=== PATIENT | female | born 1985 | race Caucasian/White ===

== ENCOUNTER → 2022-08-24 19:06 | Outpatient (CLI) | payer OTHER, SELFPAY ==
--- NOTE | 2022-08-24 19:10 | DI.MRI.S_ITS ---
PROCEDURE: MR LUMBAR SPINE WO CON INDICATIONS: Radiculopathy, lumbar region TECHNIQUE: Noncontrast sagittal T1 spin echo and T2 fast echo, sagittal STIR, and T2 fast spin echo through the lumbar spine. In cases with scoliosis, additional coronal T2 fast spin echo may be performed. COMPARISON: [facility] Outside Film, CR, XR LUMBAR SPINE 2 OR 3 VIEWS, 04/20/2022, 16:13. FINDINGS: Image quality: Excellent. Alignment and Curvature: There is normal bony alignment. Bone Marrow: L4-5 interbody fusion with posterior almaz and screw instrumentation in good position. Right-sided foraminotomy noted. Spinal Cord: Conus medullaris terminates at the L1 level. Visualized cord demonstrates normal signal and size. Paraspinous Soft Tissues: No paravertebral masses. T12-L1: Normal appearance. L1-L2: Normal appearance. L2-L3: Normal appearance. L3-L4: Normal appearance. L4-L5: Discectomy and fusion. Right sided foraminotomy. No central or foraminal stenosis. L5-S1: Discectomy and fusion with good graft incorporation and anterior instrumentation. No central stenosis. No foraminal stenosis IMPRESSION: L4-5 and L5-S1 instrumented discectomy and fusion. No central or foraminal stenosis throughout the exam Approved by: Gurpreet Dasilva M.D. on 08/25/2022 at 14:05
== END ==
PROVIDERS: Referring Provider Physical Medicine & Rehabilitation Pain Medicine; Visit Provider Physical Medicine & Rehabilitation Pain Medicine
DX: M54.16 Radiculopathy, lumbar region (principal); Z98.1 Arthrodesis status
CPT/HCPCS: 72148

== ENCOUNTER → 2022-09-27 13:35 | Outpatient (CLI) | payer OTHER, SELFPAY ==
--- NOTE | 2022-09-27 | DI.MG.S_ITS ---
BILATERAL DIGITAL DIAGNOSTIC MAMMOGRAM 3D/2D: 09/27/2022 CLINICAL: Baseline Bilateral lumps. No prior exams were available for comparison. Both breasts are extremely dense, which lowers the sensitivity of mammography (category d />75% glandular tissue). No significant masses, calcifications, or other findings are seen in either breast. IMPRESSION: INCOMPLETE: NEEDS ADDITIONAL IMAGING EVALUATION There is no abnormality seen in the right breast to correspond with the palpable abnormality, however, ultrasound is recommended. There are no abnormalities seen in the left breast to correspond with the multiple palpable nodularities, however, ultrasound is recommended. Based on the Tyrer Cuzick model (a risk assessment model) the patient's lifetime risk is 15.0% and her 10 year risk is 1.1%. According to the ACR, ACS, and NCCN guidelines, an annual breast MRI exam along with mammogram is recommended if the patient's lifetime risk is 20% or greater. This exam was interpreted at Station ID: [id number]. NOTE: For mammograms, a report in lay terms will be sent to the patient. Approximately 15% of breast malignancies will not be visualized mammographically. In the management of a palpable breast mass, a negative mammogram must not discourage biopsy of a clinically suspicious lesion. Electronically Signed By: Tobias Arzola M.D. lc/:09/27/2022 15:37:40 ACR BI-RADS Category 0: Incomplete 3340F
--- NOTE | 2022-09-27 13:38 | DI.US.S_ITS ---
ULTRASOUND OF RIGHT BREAST: 09/27/2022 CLINICAL: Evaluation of palpable region right breast. Comparison is made to exam dated: 09/27/2022 mammogram - [facility]. Real-time ultrasound of the right breast was performed. Oseguera scale images of the real-time examination were reviewed. No significant abnormalities were seen sonographically in the right breast. IMPRESSION: NEGATIVE There is no sonographic evidence of malignancy. Clinical correlation and clinical followup are recommended. Patient has intermediate lifetime risk (15%) and dense breast tissue. Please correlate with personal risk factors and consider followup annual screening mammogram, even though the patient is not yet 42 years of age. In addition, patient is encouraged to return for reimaging if there are any new or concerning symptoms. In addition, patient reported bilateral compressible milky discharge. Consider clinical followup and further workup for this finding as well. This exam was interpreted at Station ID: [id number]. Electronically Signed By: Tobias Arzola M.D. lc/:09/27/2022 15:49:29 letter sent: Clinical Evaluation Ultrasound BI-RADS: 1 Negative
--- NOTE | 2022-09-27 13:38 | DI.US.S_ITS ---
ULTRASOUND OF LEFT BREAST: 09/27/2022 CLINICAL: Evaluation of palpable lumps left breast. Comparison is made to exam dated: 09/27/2022 mammogram - [facility]. Real-time ultrasound of the left breast was performed. Oseguera scale images of the real-time examination were reviewed. No significant abnormalities were seen sonographically in the left breast. IMPRESSION: NEGATIVE There is no sonographic evidence of malignancy. There are no abnormalities seen in the left breast to correspond with the palpable nodularities at 2, 4, and 7 o'clock, however, clinical correlation and clinical followup are recommended. Patient has intermediate lifetime risk (15%) and dense breast tissue. Please correlate with personal risk factors and consider followup annual screening mammogram, even though the patient is not yet 42 years of age. In addition, patient is encouraged to return for reimaging if there are any new or concerning symptoms. In addition, patient reported bilateral compressible milky discharge. Consider clinical followup and further workup for this finding as well. This exam was interpreted at station ID: [id number]. Electronically Signed By: Tobias Arzola M.D. lc/:09/27/2022 15:49:08 letter sent: Clinical Evaluation Ultrasound BI-RADS: 1 Negative
== END ==
PROVIDERS: Referring Provider Nurse Practitioner Obstetrics & Gynecology; Visit Provider Nurse Practitioner Obstetrics & Gynecology
DX: N63.10 Unspecified lump in the right breast, unspecified quadrant (principal); N63.20 Unspecified lump in the left breast, unspecified quadrant; R92.2 Inconclusive mammogram
CPT/HCPCS: 76642; 77066; G0279

== ENCOUNTER 2023-05-01 13:29 | Emergency (ER) | payer OTHER, SELFPAY ==
[2023-05-01 13:45] VITALS: BP 137/86; PULSE 106; RESP 16; TEMP 36.3; O2SAT 100; BMI 34.7
[2023-05-01 14:40] LABS: COVID-19 CEPHEID 4-PLEX PCR Negative (Negative); Influenza A - CEPHEID Flu A NEGATIVE (NEGATIVE); Influenza B - CEPHEID Flu B NEGATIVE (NEGATIVE); Respiratory Syncytial Virus Negative (Negative)
--- NOTE | 2023-05-01 16:04 | ED_ITS ---
HPI - Weakness <MASTER Espinoza - Last Filed: 05/01/23 17:31> General Chief complaint: Weakness Stated complaint: body swelling, weakness/pain Time Seen by Provider: 05/01/23 14:38 Source: patient Mode of arrival: Ambulatory History of Present Illness HPI Narrative: 38-year-old female, with history of frequent back surgeries and trigger point injections, presents to the emergency department with all body swelling since this a.m.. Patient states that she was exhibiting no symptoms before going to bed last night, denies eating any new foods or taking your medications before this morning. Patient has been on a new weight loss medication, Qsymia, for the last 5 days but has not experienced any bloating or swelling until this morning. Patient endorses that she had pitting edema in lower extremities, hand severely swollen and face was droopy because of the swelling. Patient stated that she had a hard time forming the sound ?F? because of all of the swelling. Patient took her morphine 100 mg around 8:00 a.m. this morning and then took her breakthrough pain medication after presenting to the emergency department. Patient states that she is still in enormous amount of pain. Last trigger point injection was a week ago and last doctor's appointment was 2 weeks ago. Patient's father is at the bedside. Related Data Allergies Allergy/AdvReac Type Severity Reaction Status Date / Time meperidine [From Demerol] Allergy Hypertensio Verified 05/01/23 13:44 n piperacillin [From Zosyn] Allergy Hypotension Verified 05/01/23 13:44 tazobactam [From Zosyn] Allergy Hypotension Verified 05/01/23 13:44 codeine AdvReac Hives Verified 05/01/23 13:44 metoclopramide [From Reglan] AdvReac Anxiety Verified 05/01/23 13:44 ondansetron [From Zofran] AdvReac Hives Verified 05/01/23 13:44 Sulfa (Sulfonamide AdvReac Hives Verified 05/01/23 13:44 Antibiotics) Review of Systems <MASTER Espinoza - Last Filed: 05/01/23 17:31> Review of Systems Narrative: Narrative: See HPI. GENERAL: Denies chills, fatigue, fever, sweats. Generalized pain throughout. HEENT: Denies sinus pain, ear pain, sore throat, difficulty swallowing, dizziness. RESPIRATORY: Denies dyspnea, cough, wheezing, sputum. CARDIOVASCULAR: Denies chest pain, palpitations, edema. GASTROINTESTINAL: Denies vomiting, abdominal pain, diarrhea, constipation. Endorses nausea secondary to pain. : Denies dysuria, frequency, incontinence, hematuria, urinary retention, flank pain. MSK: Denies weakness, joint pain, or bony pain. SKIN: Denies rash, skin lesions, or pruritis. Endorses edema and swelling throughout her body. NEUROLOGIC: Denies weakness, dizziness, headache, numbness, confusion. PSYCHIATRIC: No concerning psychosocial issues. Patient History <MASTER Espinoza - Last Filed: 05/01/23 17:31> Social History Smoking Status: Current every day smoker Smoking Status: Current every day smoker tobacco type: cigarettes alcohol intake frequency: holidays/special occasions only Substance Use Type: does not use Exam <MASTER Espinoza - Last Filed: 05/01/23 17:31> Narrative Exam Narrative: Exam Narrative: GENERAL: This is a well-nourished, well-developed patient, in no acute distress. HEAD: Atraumatic. Normocephalic. EYES: Pupils equal round and reactive. No scleral icterus, injection or drainage. ENT: Nose without bleeding, purulent drainage. Airway patent. CARDIOVASCULAR: Regular rate and rhythm without murmurs, peripheral pulses intact, cap refill <2 sec. RESPIRATORY: Breath sounds equal and clear bilaterally. No wheezes, rales, or rhonchi. No cough. No increased respiratory effort. No accessory muscle use. GASTROINTESTINAL: Abdomen soft, mild left lower quadrant tenderness, nondistended without guarding or rebound. No suprapubic pain. Last bowel movement was yesterday. MSK: Moves all extremities. Normal range of motion, no clubbing. Mild generalized edema. Neurovascularly intact. NEURO: A&O x 3. No facial drooping or other neuro deficits. SKIN: Warm, dry, no rashes or lesions noted. Initial Vital Signs Initial Vital Signs: Vital Signs Temperature 97.4 F L 05/01/23 13:45 Pulse Rate 106 H 05/01/23 13:45 Respiratory Rate 16 05/01/23 13:45 Blood Pressure 137/86 05/01/23 13:45 Pulse Oximetry 100 05/01/23 13:45 Oxygen Delivery Method Room Air 05/01/23 13:45 Reviewed <Humphrey Higgins MD - Last Filed: 05/02/23 18:30> Initial Vital Signs Initial Vital Signs: Vital Signs Temperature 97.4 F L 05/01/23 13:45 Pulse Rate 106 H 05/01/23 13:45 Respiratory Rate 16 05/01/23 13:45 Blood Pressure 137/86 05/01/23 13:45 Pulse Oximetry 100 05/01/23 13:45 Oxygen Delivery Method Room Air 05/01/23 13:45 Course <MASTER Espinoza - Last Filed: 05/01/23 17:31> Orders Ordered: ED Orders 05/01/23 13:51 Covid-19 + FLU A/B + RSV - PCR Stat 05/01/23 15:56 CBC Auto Diff [Complete Blood Count AUTO DIFF] Stat CMP [Comprehensive Metabolic Panel] Stat Vital Signs Vital signs: Vital Signs - 8 hr 05/01/23 13:45 05/01/23 16:22 Temperature 97.4 F L 97.6 F Pulse Rate 106 H 88 Respiratory Rate 16 20 Blood Pressure 137/86 108/64 Pulse Oximetry 100 96 Oxygen Delivery Method Room Air Room Air <Humphrey Higgins MD - Last Filed: 05/02/23 18:30> Orders Ordered: ED Orders 05/01/23 13:51 Covid-19 + FLU A/B + RSV - PCR Stat 05/01/23 15:56 CBC Auto Diff [Complete Blood Count AUTO DIFF] Stat CMP [Comprehensive Metabolic Panel] Stat Vital Signs Vital signs: Vital Signs - 8 hr 05/01/23 13:45 05/01/23 16:22 Temperature 97.4 F L 97.6 F Pulse Rate 106 H 88 Respiratory Rate 16 20 Blood Pressure 137/86 108/64 Pulse Oximetry 100 96 Oxygen Delivery Method Room Air Room Air MDM - Weakness <MASTER Espinoza - Last Filed: 05/01/23 17:31> Differential Diagnosis Differential diagnosis: Likely other (Edema, adverse reaction to medication) Lab Data 05/01/23 16:17 05/01/23 16:17 Labs: Lab Results 05/01/23 05/01/23 Range/Units 13:51 16:17 WBC 9.1 (4.5-11.0) X10^3/uL RBC 4.16 (4.0-5.2) X10^6/uL Hgb 12.4 (12.0-16.0) g/dL Hct 36.2 (36-46) % MCV 87.1 (80-100) fL MCH 29.7 (26-34) PG MCHC 34.2 (30-36) % RDW 13.6 (11.6-14.8) % Plt Count 294 (150-400) X10^3/uL Neut % (Auto) 61.5 (50-75) % Lymph % (Auto) 31.0 (25-40) % Ballard % (Auto) 4.7 (3-14) % Eos % (Auto) 2.2 (2-4) % Baso % (Auto) 0.6 (0-2) % Neut # (Auto) 5600 (8553-6826) /uL Lymph # (Auto) 2800 (7211-9751) /uL Ballard # (Auto) 400 (0-900) /uL Eos # (Auto) 200 (0-450) /uL Baso # (Auto) 100 (0-100) /uL Sodium 137 (137-145) mmol/L Potassium 3.7 (3.4-5.1) mmol/L Chloride 104 (98-107) mmol/L Carbon Dioxide 28 (22-32) mmol/L BUN 11 (7-17) mg/dL Creatinine 0.54 (0.52-1.04) mg/dL Estimated GFR > 60 (>60) mL/min BUN/Creatinine Ratio 20.4 (6-22) Glucose 107 H (70-100) mg/dL Calcium 8.9 (8.4-10.2) mg/dL Total Bilirubin 0.2 (0.2-1.3) mg/dL AST 67 H (14-36) IU/L ALT 45 H (<35) IU/L Alkaline Phosphatase 86 (38-126) U/L Total Protein 6.6 (6.3-8.2) g/dL Albumin 3.7 (3.5-5.0) g/dL Globulin 2.9 (1.7-4.1) g/dL Albumin/Globulin Ratio 1.3 (1.0-2.8) SARS-CoV-2 (PCR) Negative (Negative) Influenza A (RT-PCR) Flu a negative (NEGATIVE) Influenza B (RT-PCR) Flu b negative (NEGATIVE) RSV (PCR) Negative (Negative) MDM Narrative Medical decision making narrative: 38-year-old female with all body edema since this a.m.. Assessment was inconclusive and I am not sure what is causing patient's swelling. I suspect this may be a adverse reaction to the medication Qsymia that has phentermine and topiramate in it. Baseline labs obtained were all within normal limits. Patient is still uncomfortable but has plenty of at home medication. Discussed case with Dr. Higgins. When going into explained discharge instructions, patient was sleeping soundly. <Humphrey Higgins MD - Last Filed: 05/02/23 18:30> Lab Data Labs: Lab Results 05/01/23 05/01/23 Range/Units 13:51 16:17 WBC 9.1 (4.5-11.0) X10^3/uL RBC 4.16 (4.0-5.2) X10^6/uL Hgb 12.4 (12.0-16.0) g/dL Hct 36.2 (36-46) % MCV 87.1 (80-100) fL MCH 29.7 (26-34) PG MCHC 34.2 (30-36) % RDW 13.6 (11.6-14.8) % Plt Count 294 (150-400) X10^3/uL Neut % (Auto) 61.5 (50-75) % Lymph % (Auto) 31.0 (25-40) % Ballard % (Auto) 4.7 (3-14) % Eos % (Auto) 2.2 (2-4) % Baso % (Auto) 0.6 (0-2) % Neut # (Auto) 5600 (0543-5668) /uL Lymph # (Auto) 2800 (6923-3857) /uL Ballard # (Auto) 400 (0-900) /uL Eos # (Auto) 200 (0-450) /uL Baso # (Auto) 100 (0-100) /uL Sodium 137 (137-145) mmol/L Potassium 3.7 (3.4-5.1) mmol/L Chloride 104 (98-107) mmol/L Carbon Dioxide 28 (22-32) mmol/L BUN 11 (7-17) mg/dL Creatinine 0.54 (0.52-1.04) mg/dL Estimated GFR > 60 (>60) mL/min BUN/Creatinine Ratio 20.4 (6-22) Glucose 107 H (70-100) mg/dL Calcium 8.9 (8.4-10.2) mg/dL Total Bilirubin 0.2 (0.2-1.3) mg/dL AST 67 H (14-36) IU/L ALT 45 H (<35) IU/L Alkaline Phosphatase 86 (38-126) U/L Total Protein 6.6 (6.3-8.2) g/dL Albumin 3.7 (3.5-5.0) g/dL Globulin 2.9 (1.7-4.1) g/dL Albumin/Globulin Ratio 1.3 (1.0-2.8) SARS-CoV-2 (PCR) Negative (Negative) Influenza A (RT-PCR) Flu a negative (NEGATIVE) Influenza B (RT-PCR) Flu b negative (NEGATIVE) RSV (PCR) Negative (Negative) MDM Narrative Medical decision making narrative: 38-year-old female with all body edema since this a.m.. Assessment was inconclusive and I am not sure what is causing patient's swelling. I suspect this may be a adverse reaction to the medication Qsymia that has phentermine and topiramate in it. Baseline labs obtained were all within normal limits. Patient is still uncomfortable but has plenty of at home medication. Discussed case with Dr. Higgins. When going into explained discharge instructions, patient was sleeping soundly. I was immediately available in the department for consultation. Documentation has been reviewed. I agree with assessment and plan. Discharge Plan Departure Patient Disposition: Home Clinical Impression: Edema Qualifiers: Edema type: generalized Qualified Code(s): R60.1 - Generalized edema Instructions: DI for Dependent Edema, DI for Peripheral Edema -- Bilateral Activity Restrictions/Additional Instructions: *You have been diagnosed with edema. I am sorry that you are having to deal with this, but I do suspect this may have been an adverse reaction to your medication. Your labs were all within normal limits and there is nothing dangerous noted at this time. I believe this will resolve over time. You may elevate swollen areas above your heart as much as possible over the next 48 hours to allow the edema to go down. You may also want to follow up with the doctor that prescribed this medication in case adjustments need to be made. Please use your at-home pain medications as needed. For any worsening symptoms such as difficulty breathing, chest pain, etc. please return to the emergency department. *What to do: *Please continue to take your regular medications as directed. [ ] New medication prescriptions sent to your pharmacy: [ ] [ ] New medication written as a paper prescription [x ] No new medications given *Please follow up with your primary care provider in 2-3 days, call for an appointment. Let them know you were seen in the Emergency Department and that we ask that you be seen in follow up. We will electronically transmit a record of today's note if your PCP is in our system *If you do not have a primary care provider please contact the [facility] Resource line at [phone]. They will ask some questions about your medical history and help get you set up with a doctor in the community. ? Return to ER if you should have any new, worsening or concerning symptoms, such as worsening pain, severe headache, confusion, chest pain, difficulty breathing, fever greater than 101 F, shaking chills, persistent vomiting to the point that you cannot drink fluids, or other new or worsening symptoms. Stand Alone Forms: Patient Portal/API
[2023-05-01 16:22] VITALS: BP 108/64; PULSE 88; RESP 20; TEMP 36.4; O2SAT 96
[2023-05-01 16:26] LABS: Add Manual Diff / Slide Review NO; Basophils Absolute Auto 100 /uL (0-100); Basophils Percent Auto 0.6 % (0-2); Eosinophils Absolute Auto 200 /uL (0-450); Eosinophils Percent Auto 2.2 % (2-4); Hematocrit 36.2 % (36-46); Hemoglobin 12.4 g/dL (12.0-16.0); Lymphocytes Absolute Auto 2800 /uL (1100-4500); Mean Corpuscular HGB Conc 34.2 % (30-36); Mean Corpuscular Hemoglobin 29.7 PG (26-34); Mean Corpuscular Volume 87.1 fL (80-100); Monocytes Absolute Auto 400 /uL (0-900); Monocytes Percent Auto 4.7 % (3-14); Neutrophils Absolute Auto 5600 /uL (1500-7000); Neutrophils Percent Auto 61.5 % (50-75); Platelet Count 294 X10^3/uL (150-400); Red Blood Cell Count 4.16 X10^6/uL (4.0-5.2); Red Cell Distribution Width 13.6 % (11.6-14.8); White Blood Cell Count 9.1 X10^3/uL (4.5-11.0)
[2023-05-01 16:55] LABS: Alanine Aminotransferase 45 IU/L (<35); Albumin 3.7 g/dL (3.5-5.0); Albumin Globulin Ratio 1.3 (1.0-2.8); Alkaline Phosphatase 86 U/L (38-126); Aspartate Aminotransferase 67 IU/L (14-36); BUN Creatinine Ratio 20.4 (6-22); Bilirubin Total 0.2 mg/dL (0.2-1.3); Blood Urea Nitrogen 11 mg/dL (7-17); Calcium 8.9 mg/dL (8.4-10.2); Carbon Dioxide 28 mmol/L (22-32); Chloride 104 mmol/L (98-107); Estimated Glomerular Filt Rate > 60 mL/min (>60); Globulin 2.9 g/dL (1.7-4.1); Glucose 107 mg/dL (70-100); HEMOLYSIS < 15 (0-50); Potassium 3.7 mmol/L (3.4-5.1); Sodium 137 mmol/L (137-145); Total Protein 6.6 g/dL (6.3-8.2)
[2023-05-01 17:45] VITALS: BP 104/55; PULSE 75; RESP 12; O2SAT 96
== END 2023-05-01 17:49 | disposition home or self-care (01) ==
PROVIDERS: Emergency Medicine; Emergency Provider Registered Nurse
DX: R60.1 Generalized edema (principal)
CPT/HCPCS: 0241U; 80053; 85025; 99281; 99283

== ENCOUNTER → 2023-07-19 12:58 | Outpatient (CLI) | payer OTHER, SELFPAY ==
--- NOTE | 2023-07-19 13:04 | DI.CT.S_ITS ---
PROCEDURE: CT LUMBAR SPINE WO CON INDICATIONS: radiculopathy lumbar region TECHNIQUE: Noncontrast 3 mm thick sections acquired from the T12 level to the sacrum. Sagittal and coronal reformats were constructed. For radiation dose reduction, the following was used: automated exposure control. COMPARISON: [facility], MR, MR LUMBAR SPINE WO CON, 08/24/2022, 19:27. [facility] Outside Film, CT, CT LUMBAR SPINE WITHOUT CONTRAST, 01/22/2021, 22:30. FINDINGS: Image quality: Prominent artifact from fusion hardware is present. Bones: There is anterior fusion at L5. Posterior fusion is present at L4-5. Intervertebral spacer/prosthetic discs are present at L4-5 and L5-S1. There is no gross spinal stenosis. Mild right foraminal narrowing at L4-5, minimally progressive. Soft tissues: No retroperitoneal masses or hematomas. Visualized aorta is normal in caliber. IMPRESSION: Relatively stable exam demonstrating stent to postsurgical changes. Mild right foraminal narrowing at L4-5. Dictated by: Isamar Garcia M.D. on 07/19/2023 at 19:37 Approved by: Isamar Garcia M.D. on 07/19/2023 at 19:49
== END ==
PROVIDERS: Referring Provider Physical Medicine & Rehabilitation; Visit Provider Physical Medicine & Rehabilitation
DX: M54.16 Radiculopathy, lumbar region (principal); M48.061 Spinal stenosis, lumbar region without neurogenic claudication; Z98.1 Arthrodesis status
CPT/HCPCS: 72131

== ENCOUNTER 2023-08-15 19:33 | Emergency (ER) | payer OTHER, SELFPAY ==
[2023-08-15 19:51] VITALS: BP 146/65; PULSE 112; RESP 20; TEMP 36.3; O2SAT 98; BMI 36.6
--- NOTE | 2023-08-15 21:01 | DI.US.S_ITS ---
PROCEDURE: US PERIPH VENOUS LOW EXTREM RT INDICATIONS: PAIN/EDEMA 9 DAYS POST TRAUMA TECHNIQUE: Real-time imaging, as well as color and pulse Doppler interrogation, were performed of the lower extremity deep veins from the inguinal ligament to the popliteal fossa, with documentation of the visualized calf veins. COMPARISON: None. FINDINGS: The common femoral, femoral, popliteal, and the visualized calf veins are normally compressible, and free of intraluminal thrombus. Color and pulse Doppler demonstrate normal phasic intraluminal flow. There is normal augmentation response to distal compression maneuver. IMPRESSION: No findings of lower extremity deep venous thrombosis. Dictated by: Jean Pierre Van M.D. on 08/15/2023 at 22:52 Approved by: Jean Pierre Van M.D. on 08/15/2023 at 22:53
--- NOTE | 2023-08-15 22:47 | ED.LOWEXIN ---
HPI - Extremity Injury (Lower) General Chief Complaint: Extremity Injury, Lower Stated Complaint: rt leg posible DVT Time Seen by Provider: 08/15/23 22:29 Source: patient Mode of arrival: Ambulatory History of Present Illness HPI Narrative: 38-year-old female presents for evaluation of right lower extremity pain and swelling. Approximately 10 days ago she had a ground level trip and fall onto some concrete stairs. She had persistent pain and bruising and so yesterday she went to the walk-in clinic where x-rays of her lower extremity were obtained and reportedly normal. Patient states that she was told today to come back to the emergency department to rule out DVT due to the swelling and bruising. Patient reports son has history of Von Willebrand's disease and she was also undergoing testing for possible bleeding disorder. She states that she has been using compression, ice, elevation as well as her chronic pain medications without significant relief. She states that she takes 100 mg morphine extended release and 10-325 oxycodone tablets as her chronic pain regimen. Related Data Allergies Allergy/AdvReac Type Severity Reaction Status Date / Time meperidine [From Demerol] Allergy Hypertensio Verified 08/15/23 19:59 n piperacillin [From Zosyn] Allergy Hypotension Verified 08/15/23 19:59 tazobactam [From Zosyn] Allergy Hypotension Verified 08/15/23 19:59 codeine AdvReac Hives Verified 08/15/23 19:59 metoclopramide [From Reglan] AdvReac Anxiety Verified 08/15/23 19:59 ondansetron [From Zofran] AdvReac Hives Verified 08/15/23 19:59 Sulfa (Sulfonamide AdvReac Hives Verified 08/15/23 19:59 Antibiotics) Patient History Social History Smoking Status: Current every day smoker Smoking Status: Current every day smoker tobacco type: cigarettes alcohol intake frequency: holidays/special occasions only Substance Use Type: does not use Exam Initial Vital Signs Initial Vital Signs: Vital Signs Temperature 97.3 F L 08/15/23 19:51 Pulse Rate 112 H 08/15/23 19:51 Respiratory Rate 20 08/15/23 19:51 Blood Pressure 146/65 H 08/15/23 19:51 Pulse Oximetry 98 08/15/23 19:51 Oxygen Delivery Method Room Air 08/15/23 19:51 Const: Awake, alert, no acute distress, nontoxic appearing MSK: Bruising from knee to ankle, compartments soft, generalized tenderness to RLE without crepitus or deformity Skin: Warm, Dry, intact, bruising as noted above Neuro: AO x3, CN II-XII grossly intact, moves all extremities Course Orders Ordered: ED Orders 08/15/23 21:01 US periph venous low extrem rt Stat 08/15/23 23:10 CBC Auto Diff [Complete Blood Count AUTO DIFF] Stat CMP [Comprehensive Metabolic Panel] Stat PT [Prothrombin Time INR] Stat Discontinued Medications Acetaminophen (Ofirmev) 1,000 mg in 100 mls @ 400 mls/hr IV NOW ONE Stop: 08/15/23 23:23 Last Infusion: 08/16/23 00:25 Dose: Infused Documented By: Admin: 08/16/23 00:11 Dose: 400 mls/hr Documented By: Ketorolac Tromethamine (Ketorolac 30 Mg/Ml Vial) 15 mg IV NOW ONE Stop: 08/15/23 23:10 Last Admin: 08/16/23 00:11 Dose: 15 mg Documented By: Morphine Sulfate (Morphine 4 Mg/Ml Inj) 4 mg IV NOW ONE Stop: 08/15/23 23:10 Last Admin: 08/16/23 00:12 Dose: 4 mg Documented By: Vital Signs Vital signs: Vital Signs - 8 hr 08/16/23 00:25 08/16/23 00:30 08/16/23 01:00 Pulse Rate 89 95 H 97 H Blood Pressure Pulse Oximetry 98 98 94 08/16/23 01:30 08/16/23 02:00 08/16/23 02:22 Pulse Rate 98 H 103 H Blood Pressure 88/54 L Pulse Oximetry 95 96 MDM - Extremity Injury (Lower) Differential Diagnosis Differential diagnosis: Likely ankle sprain and strain, acute internal derangement of knee and fracture of femur Lab Data 08/16/23 00:14 08/16/23 00:14 Labs: Lab Results 08/16/23 Range/Units 00:14 WBC 12.7 H (4.5-11.0) X10^3/uL RBC 4.11 (4.0-5.2) X10^6/uL Hgb 12.0 (12.0-16.0) g/dL Hct 35.7 L (36-46) % MCV 86.8 (80-100) fL MCH 29.1 (26-34) PG MCHC 33.5 (30-36) % RDW 13.5 (11.6-14.8) % Plt Count 321 (150-400) X10^3/uL Neut % (Auto) 68.2 (50-75) % Lymph % (Auto) 22.8 L (25-40) % [place] % (Auto) 6.0 (3-14) % Eos % (Auto) 2.4 (2-4) % Baso % (Auto) 0.6 (0-2) % Neut # (Auto) 8700 H (0878-2455) /uL Lymph # (Auto) 2900 (7619-6269) /uL [place] # (Auto) 800 (0-900) /uL Eos # (Auto) 300 (0-450) /uL Baso # (Auto) 100 (0-100) /uL PT 11.0 (9.4-12.5) SECONDS INR 1.0 (0.9-1.3) Sodium 135 L (137-145) mmol/L Potassium 3.5 (3.4-5.1) mmol/L Chloride 104 (98-107) mmol/L Carbon Dioxide 27 (22-32) mmol/L BUN 13 (7-17) mg/dL Creatinine 0.58 (0.52-1.04) mg/dL Estimated GFR > 60 (>60) mL/min BUN/Creatinine Ratio 22.4 H (6-22) Glucose 99 (70-100) mg/dL Calcium 8.8 (8.4-10.2) mg/dL Total Bilirubin 0.4 (0.2-1.3) mg/dL AST 18 (14-36) IU/L ALT 16 (<35) IU/L Alkaline Phosphatase 76 (38-126) U/L Total Protein 7.1 (6.3-8.2) g/dL Albumin 4.3 (3.5-5.0) g/dL Globulin 2.8 (1.7-4.1) g/dL Albumin/Globulin Ratio 1.5 (1.0-2.8) Imaging Data US - DVT: Radiologist's Impression: PROCEDURE: US PERIPH VENOUS LOW EXTREM RT INDICATIONS: PAIN/EDEMA 9 DAYS POST TRAUMA TECHNIQUE: Real-time imaging, as well as color and pulse Doppler interrogation, were performed of the lower extremity deep veins from the inguinal ligament to the popliteal fossa, with documentation of the visualized calf veins. COMPARISON: None. FINDINGS: The common femoral, femoral, popliteal, and the visualized calf veins are normally compressible, and free of intraluminal thrombus. Color and pulse Doppler demonstrate normal phasic intraluminal flow. There is normal augmentation response to distal compression maneuver. IMPRESSION: No findings of lower extremity deep venous thrombosis. Dictated by: Jean Pierre Van M.D. on 08/15/2023 at 22:52 Approved by: Jean Pierre Van M.D. on 08/15/2023 at 22:53 [facility] Narrative Medical decision making narrative: Presenting for evaluation of possible DVT due to persistent pain and swelling after traumatic injury. Negative x-rays yesterday per patient report. Patient does have extensive bruising noted over her knee, tib-fib region, and ankle. Compartments are soft, palpable DP pulses, neurologically intact. Ultrasound negative for DVT. Blood work shows normal platelets, normal INR, no explanation for delayed bruising. Patient was counseled on lab and imaging findings, recommended orthopedic follow up to see if there are any ligamentous injuries. Patient was already on high doses of chronic pain medications and we will not prescribe any additional at this time. Discharge Plan Departure Patient Disposition: Home Clinical Impression: Contusion of lower extremity Instructions: DI for Contusion Activity Restrictions/Additional Instructions: Your ultrasound today did not show any signs of blood clot. Your platelets were normal today and your INR (clotting time) was also normal. I do not know why you are experiencing this bruising. Continue to take your normal pain medications and follow up with Orthopedic surgery. Referrals: Socrates Franklin MD [Primary Care Provider] - Dillon Casey MD [Physician] - Stand Alone Forms: Patient Portal/API
--- NOTE | 2023-08-15 23:19 | PC.NURSE ---
c/o pain in the RLE after tripping and falling over a toy was seen at outside facility yesterday and told to come here if pain continued, no obvious injury noted
[2023-08-16] MEDS: KETOROLAC 30 MG/ML VIAL 15 MG IV (00:11)
[2023-08-16] MEDS: ACETAMINOPHEN IV 1,000 MG/100 ML VIAL 400 MG IV (00:11)
[2023-08-16] MEDS: MORPHINE 4 MG/ML INJ IV (00:12)
[2023-08-16 00:23] LABS: Add Manual Diff / Slide Review NO; Basophils Absolute Auto 100 /uL (0-100); Basophils Percent Auto 0.6 % (0-2); Eosinophils Absolute Auto 300 /uL (0-450); Eosinophils Percent Auto 2.4 % (2-4); Hematocrit 35.7 % (36-46); Lymphocytes Absolute Auto 2900 /uL (1100-4500); Lymphocytes Percent Auto 22.8 % (25-40); Mean Corpuscular HGB Conc 33.5 % (30-36); Mean Corpuscular Hemoglobin 29.1 PG (26-34); Mean Corpuscular Volume 86.8 fL (80-100); Monocytes Absolute Auto 800 /uL (0-900); Neutrophils Absolute Auto 8700 /uL (1500-7000); Neutrophils Percent Auto 68.2 % (50-75); Platelet Count 321 X10^3/uL (150-400); Red Blood Cell Count 4.11 X10^6/uL (4.0-5.2); Red Cell Distribution Width 13.5 % (11.6-14.8); White Blood Cell Count 12.7 X10^3/uL (4.5-11.0)
[2023-08-16 00:25] VITALS: PULSE 89; O2SAT 98
[2023-08-16 00:30] VITALS: PULSE 95; O2SAT 98
[2023-08-16 00:33] LABS: Alanine Aminotransferase 16 IU/L (<35); Albumin 4.3 g/dL (3.5-5.0); Albumin Globulin Ratio 1.5 (1.0-2.8); Alkaline Phosphatase 76 U/L (38-126); Aspartate Aminotransferase 18 IU/L (14-36); BUN Creatinine Ratio 22.4 (6-22); Bilirubin Total 0.4 mg/dL (0.2-1.3); Blood Urea Nitrogen 13 mg/dL (7-17); Calcium 8.8 mg/dL (8.4-10.2); Carbon Dioxide 27 mmol/L (22-32); Chloride 104 mmol/L (98-107); Estimated Glomerular Filt Rate > 60 mL/min (>60); Globulin 2.8 g/dL (1.7-4.1); Glucose 99 mg/dL (70-100); HEMOLYSIS < 15 (0-50); Potassium 3.5 mmol/L (3.4-5.1); Sodium 135 mmol/L (137-145); Total Protein 7.1 g/dL (6.3-8.2)
[2023-08-16 01:00] VITALS: PULSE 97; O2SAT 94
[2023-08-16 01:30] VITALS: PULSE 98; O2SAT 95
--- NOTE | 2023-08-16 01:34 | PC.NURSE ---
0045 & 0134 Pt attempted to contact ride home. She will try again until she is able to find a ride home.
[2023-08-16 02:00] VITALS: PULSE 103; O2SAT 96
--- NOTE | 2023-08-16 02:09 | PC.NURSE ---
0200 Pt states that he mother is coming from the [facility]. It may take her at lease 1 hour. Message around 134 am
[2023-08-16 02:22] VITALS: BP 88/54
== END 2023-08-16 02:23 | disposition home or self-care (01) ==
PROVIDERS: Emergency Provider Emergency Medicine; PCP Internal Medicine
DX: S80.01XA Contusion of right knee, initial encounter (principal); S90.01XA Contusion of right ankle, initial encounter; S80.11XA Contusion of right lower leg, initial encounter; W18.30XA Fall on same level, unspecified, initial encounter
CPT/HCPCS: 36415; 80053; 85025; 85610; 93971; 96374; 96375; 99284; J0136; J1885; J2270

== ENCOUNTER 2023-09-10 13:08 | Emergency (ER) | payer OTHER, SELFPAY ==
[2023-09-10] VITALS (12 sets, daily range): BP systolic 114–137; BP diastolic 58–81; PULSE 89–105; RESP 11–20; TEMP 36.2; O2SAT 95–99; BMI 34.7
--- NOTE | 2023-09-10 13:11 | DI.RAD.S_ITS ---
PROCEDURE: XR CHEST 1V INDICATIONS: chest pain TECHNIQUE: One view of the chest was acquired. COMPARISON: None. FINDINGS: Surgical changes and devices: None. Lungs and pleura: Lungs are clear. No pleural effusions or pneumothorax. Mediastinum: Mediastinal contours appear normal. Heart size is normal. Bones and chest wall: No suspicious bony lesions. Overlying soft tissues appear unremarkable. IMPRESSION: No acute cardiopulmonary abnormality is seen. Dictated by: Sincere Waldrop M.D. on 09/10/2023 at 13:09 Approved by: Sincere Waldrop M.D. on 09/10/2023 at 13:09
--- NOTE | 2023-09-10 13:59 | ED.SYNCOPE ---
HPI - Syncope General Chief Complaint: Syncope Stated Complaint: Syncope Time Seen by Provider: 09/10/23 13:42 Source: patient and EMS Mode of arrival: EMS History of Present Illness HPI narrative: Patient is a 38-year-old female with chronic ongoing back pain history of lumbar fusion, current smoker diabetes presenting today with a syncopal episode. She reports that she was sitting down in [employer] when she got extremely hot and slumped over. She got sternal rubbed woke up to many people all around her. She does not remember much. There is questionable shaking. It sounds like it was a brief episode. She reports that she ate and drank normally she staying hydrated. She reports that she has had 2 different imaging she went to a nuclear bone scan [facility] and called her and told her that she has some sort of bilateral consolidations within the lower lobes right greater than left concerning for aspiration or infectious process such as pneumonia. She then went to walk-in clinic where she was diagnosed with the same. She was given a prescription for doxycycline but has yet to start. Reports that she has had cough for about 3 months. She does not feel like it has been anywhere she has not had any sort of fever. She does have a hoarse voice. Related Data Home Medications Medication Instructions Recorded Confirmed buspirone 30 mg tablet 30 mg PO BID 09/10/23 09/10/23 cyclobenzaprine 10 mg tablet 10 mg PO BID 09/10/23 09/10/23 diazepam 2 mg tablet 2 mg PO BID PRN Anxiety 09/10/23 09/10/23 gabapentin 800 mg tablet 800 mg PO 3XD 09/10/23 09/10/23 meloxicam 15 mg tablet 15 mg PO DAILY 09/10/23 09/10/23 metformin 500 mg tablet 1,000 mg PO BID 09/10/23 09/10/23 morphine 100 mg tablet,extended 100 mg PO DAILY 09/10/23 09/10/23 release oxycodone-acetaminophen 10 mg-325 1 tab PO Q6H PRN pain 09/10/23 09/10/23 mg tablet phentermine 7.5 mg-topiramate ER 1 cap PO DAILY 09/10/23 09/10/23 46 mg capsule,ext.release 24hr mphase (Qsymia) vilazodone 40 mg tablet 50 mg PO DAILY 09/10/23 09/10/23 Allergies Allergy/AdvReac Type Severity Reaction Status Date / Time meperidine [From Demerol] Allergy Hypertensio Verified 09/10/23 13:16 n piperacillin [From Zosyn] Allergy Hypotension Verified 09/10/23 13:16 tazobactam [From Zosyn] Allergy Hypotension Verified 09/10/23 13:16 codeine AdvReac Hives Verified 09/10/23 13:16 metoclopramide [From Reglan] AdvReac Anxiety Verified 09/10/23 13:16 ondansetron [From Zofran] AdvReac Hives Verified 09/10/23 13:16 Sulfa (Sulfonamide AdvReac Hives Verified 09/10/23 13:16 Antibiotics) Patient History Social History Smoking Status: Current every day smoker Smoking Status: Current every day smoker tobacco type: cigarettes alcohol intake frequency: holidays/special occasions only Substance Use Type: does not use Exam Initial Vital Signs Initial Vital Signs: Vital Signs Pulse Rate 94 H 09/10/23 13:13 Blood Pressure 137/81 09/10/23 13:13 Pulse Oximetry 97 09/10/23 13:13 GENERAL: Alert pleasant 38-year-old female and in no acute distress. HEENT: Head atraumatic,EOMI, pupils reactive, face symmetric, moist mucous membranes CARDIOVASCULAR: Regular rate and rhythm without murmurs, rubs or gallops. RESPIRATORY: Breath sounds equal bilaterally, no wheezes rales or rhonchi. ABDOMEN: Soft, nontender. Normoactive bowel sounds all 4 quadrants. No guarding or rebound. EXTREMITIES: Normal range of motion, no clubbing or edema. Neurovascularly intact NEUROLOGICAL: Alert and oriented x4.Normal gait and speech. Cranial nerves II through XII grossly intact. SKIN: Warm, dry, no laceration, no petechiae, no rashes or lesions. Scores GCS Bao coma scale eye opening: Spontaneous Bao coma scale verbal response: Orientated [place] coma scale motor response: Obey commands [place] coma scale total score: 15 Course Orders Ordered: ED Orders 09/10/23 13:11 XR chest 1V Stat EKG-12 Lead Stat 09/10/23 13:50 Urine Microscopic Stat 09/10/23 13:51 D Dimer Stat 09/10/23 13:57 Complete Blood Count AUTO DIFF Stat Comprehensive Metabolic Panel Stat Lactate (Lactic Acid) Stat Lipase Stat Magnesium Stat PTT Partial Thromboplastin Kash Stat Prothrombin Time INR Stat Troponin & CK Cardiac Panel Stat 09/10/23 14:24 Respiratory Panel (Film Array) Stat Discontinued Medications Albuterol/Ipratropium (Albuterol/Ipratropium 3 Ml Ampul) 3 ml INH NOW ONE Stop: 09/10/23 14:16 Last Admin: 09/10/23 14:20 Dose: 3 ml Documented By: CUATE Aspirin (Aspirin 81 Mg Chew Tab) 324 mg PO NOW ONE Stop: 09/10/23 13:12 Last Admin: 09/10/23 13:22 Dose: Not Given Documented By: CUATE Hydromorphone HCl (Hydromorphone 0.5 Mg Inj) 0.5 mg IV NOW ONE Stop: 09/10/23 14:17 Last Admin: 09/10/23 14:25 Dose: 0.5 mg Documented By: CUATE Sodium Chloride (Normal Saline 0.9%) 1,000 mls @ 1,000 mls/hr IV BOLUS ONE Stop: 09/10/23 15:11 Last Infusion: 09/10/23 15:29 Dose: Infused Documented By: Admin: 09/10/23 14:20 Dose: 1,000 mls/hr Documented By: CUATE Ketorolac Tromethamine (Ketorolac 30 Mg/Ml Vial) 15 mg IV NOW ONE Stop: 09/10/23 14:15 Last Admin: 09/10/23 14:19 Dose: 15 mg Documented By: CUATE Oxycodone/Acetaminophen (Oxycodone/Acetaminophen 5/325 Tablet) 2 tab PO NOW ONE Stop: 09/10/23 15:57 Last Admin: 09/10/23 16:06 Dose: 2 tab Documented By: CUATE Vital Signs Vital signs: Vital Signs - 8 hr 09/10/23 13:13 09/10/23 13:13 09/10/23 13:16 Temperature 97.2 F L Pulse Rate 94 H 100 H Respiratory Rate 20 Blood Pressure 137/81 137/81 Pulse Oximetry 97 96 Oxygen Delivery Method Room Air 09/10/23 13:35 09/10/23 14:00 09/10/23 14:04 Temperature Pulse Rate 96 H 95 H 93 H Respiratory Rate 12 15 18 Blood Pressure Pulse Oximetry Oxygen Delivery Method 09/10/23 14:04 09/10/23 14:15 09/10/23 14:15 Temperature Pulse Rate 96 H Respiratory Rate 17 Blood Pressure 115/60 115/68 Pulse Oximetry Oxygen Delivery Method 09/10/23 14:30 09/10/23 14:30 09/10/23 14:45 Temperature Pulse Rate 100 H Respiratory Rate 13 Blood Pressure 114/61 131/58 L Pulse Oximetry 96 Oxygen Delivery Method 09/10/23 14:45 09/10/23 15:00 09/10/23 15:00 Temperature Pulse Rate 104 H 105 H Respiratory Rate 11 L 16 Blood Pressure 124/63 Pulse Oximetry 95 97 Oxygen Delivery Method 09/10/23 15:15 09/10/23 15:15 09/10/23 15:32 Temperature Pulse Rate 98 H 91 H Respiratory Rate 14 Blood Pressure 124/66 Pulse Oximetry 95 96 Oxygen Delivery Method 09/10/23 16:16 Temperature Pulse Rate 89 Respiratory Rate 14 Blood Pressure 116/73 Pulse Oximetry 99 Oxygen Delivery Method Room Air MDM - Syncope Lab Data 09/10/23 13:57 09/10/23 13:57 Labs: Lab Results 09/10/23 09/10/23 09/10/23 Range/Units 13:50 13:51 13:57 WBC 9.9 (4.5-11.0) X10^3/uL RBC 4.23 (4.0-5.2) X10^6/uL Hgb 12.2 (12.0-16.0) g/dL Hct 36.4 (36-46) % MCV 85.9 (80-100) fL MCH 28.8 (26-34) PG MCHC 33.5 (30-36) % RDW 12.8 (11.6-14.8) % Plt Count 385 (150-400) X10^3/uL Neut % (Auto) 60.9 (50-75) % Lymph % (Auto) 28.2 (25-40) % [place] % (Auto) 7.5 (3-14) % Eos % (Auto) 2.7 (2-4) % Baso % (Auto) 0.7 (0-2) % Neut # (Auto) 6000 (0967-9807) /uL Lymph # (Auto) 2800 (6844-1776) /uL [place] # (Auto) 700 (0-900) /uL Eos # (Auto) 300 (0-450) /uL Baso # (Auto) 100 (0-100) /uL PT 10.4 (9.4-12.5) SECONDS INR 0.9 (0.9-1.3) APTT 37 H (25.1-36.5) SECONDS D-Dimer 337 (<500) ng/ml Sodium 138 (137-145) mmol/L Potassium 4.4 (3.4-5.1) mmol/L Chloride 106 (98-107) mmol/L Carbon Dioxide 26 (22-32) mmol/L BUN 18 H (7-17) mg/dL Creatinine 0.52 (0.52-1.04) mg/dL Estimated GFR > 60 (>60) mL/min BUN/Creatinine Ratio 34.6 H (6-22) Glucose 91 (70-100) mg/dL Lactate 2.1 (0.7-2.1) mmol/L Calcium 9.2 (8.4-10.2) mg/dL Magnesium 1.7 (1.6-2.3) mg/dL Total Bilirubin 0.3 (0.2-1.3) mg/dL AST 23 (14-36) IU/L ALT 20 (<35) IU/L Alkaline Phosphatase 72 (38-126) U/L Total Creatine Kinase 58 (30-135) U/L Troponin I < 0.012 (0.01-0.034) ng/mL Total Protein 7.0 (6.3-8.2) g/dL Albumin 4.2 (3.5-5.0) g/dL Globulin 2.8 (1.7-4.1) g/dL Albumin/Globulin Ratio 1.5 (1.0-2.8) Lipase 101 (23-300) U/L Urine RBC None seen (0-5/HPF) Urine WBC None seen (0-5/HPF) Ur Squamous Epith Cells 1-5 /hpf (0-5/HPF) Urine Bacteria Occasional (0-1) (None) Ur Culture Indicated? Cult not indicated Vol Urine Centrifuged 10ml (spun) Chlamy pneumoniae PCR (Not Detect) Adenovirus (PCR) (Not Detect) B.parapertussis DNA PCR (Not Detecte) Coronavirus OC43 (PCR) (Not Detect) Coronavirus HKU1 (PCR) (Not Detect) Coronavirus 229E (PCR) (Not Detect) SARS-CoV-2 (PCR) (Not Detecte) Coronavirus NL63 (PCR) (Not Detect) Human Metapneumovir PCR (Not Detect) Influenza Type A (PCR) (Not Detect) Influenza Type B (PCR) (Not Detect) M. pneumoniae (PCR) (Not Detect) Parainfluenza 1 (PCR) (Not Detect) Parainfluenza 2 (PCR) (Not Detect) Parainfluenza 3 (PCR) (Not Detect) Parainfluenza 4 (PCR) (Not Detect) RSV (PCR) (Not Detect) Entero/Rhino (PCR) (Not Detect) 09/10/23 Range/Units 14:24 WBC (4.5-11.0) X10^3/uL RBC (4.0-5.2) X10^6/uL Hgb (12.0-16.0) g/dL Hct (36-46) % MCV (80-100) fL MCH (26-34) PG MCHC (30-36) % RDW (11.6-14.8) % Plt Count (150-400) X10^3/uL Neut % (Auto) (50-75) % Lymph % (Auto) (25-40) % [place] % (Auto) (3-14) % Eos % (Auto) (2-4) % Baso % (Auto) (0-2) % Neut # (Auto) (7569-8703) /uL Lymph # (Auto) (5231-5780) /uL [place] # (Auto) (0-900) /uL Eos # (Auto) (0-450) /uL Baso # (Auto) (0-100) /uL PT (9.4-12.5) SECONDS INR (0.9-1.3) APTT (25.1-36.5) SECONDS D-Dimer (<500) ng/ml Sodium (137-145) mmol/L Potassium (3.4-5.1) mmol/L Chloride (98-107) mmol/L Carbon Dioxide (22-32) mmol/L BUN (7-17) mg/dL Creatinine (0.52-1.04) mg/dL Estimated GFR (>60) mL/min BUN/Creatinine Ratio (6-22) Glucose (70-100) mg/dL Lactate (0.7-2.1) mmol/L Calcium (8.4-10.2) mg/dL Magnesium (1.6-2.3) mg/dL Total Bilirubin (0.2-1.3) mg/dL AST (14-36) IU/L ALT (<35) IU/L Alkaline Phosphatase (38-126) U/L Total Creatine Kinase (30-135) U/L Troponin I (0.01-0.034) ng/mL Total Protein (6.3-8.2) g/dL Albumin (3.5-5.0) g/dL Globulin (1.7-4.1) g/dL Albumin/Globulin Ratio (1.0-2.8) Lipase (23-300) U/L Urine RBC (0-5/HPF) Urine WBC (0-5/HPF) Ur Squamous Epith Cells (0-5/HPF) Urine Bacteria (None) Ur Culture Indicated? Vol Urine Centrifuged Chlamy pneumoniae PCR Not detected (Not Detect) Adenovirus (PCR) Not detected (Not Detect) B.parapertussis DNA PCR Not detected (Not Detecte) Coronavirus OC43 (PCR) Not detected (Not Detect) Coronavirus HKU1 (PCR) Not detected (Not Detect) Coronavirus 229E (PCR) Not detected (Not Detect) SARS-CoV-2 (PCR) Not detected (Not Detecte) Coronavirus NL63 (PCR) Not detected (Not Detect) Human Metapneumovir PCR Not detected (Not Detect) Influenza Type A (PCR) Not detected (Not Detect) Influenza Type B (PCR) Not detected (Not Detect) M. pneumoniae (PCR) Not detected (Not Detect) Parainfluenza 1 (PCR) Not detected (Not Detect) Parainfluenza 2 (PCR) Not detected (Not Detect) Parainfluenza 3 (PCR) Not detected (Not Detect) Parainfluenza 4 (PCR) Not detected (Not Detect) RSV (PCR) Not detected (Not Detect) Entero/Rhino (PCR) Not detected (Not Detect) Point of Care Testing Test Results Negative Urine Dip Bedside Urine Glucose Negative Bedside Urine Bilirubin - Negative Bedside Urine Ketone - Negative Urine Specific [place] 1.010 Bedside Urine Occult Blood +/- Bedside Urine pH 6.5 Bedside Urine Protein - Negative Bedside Urine Urobilinogen - Negative Bedside Urine Nitrite - Negative Bedside Urine Leukocytes - Negative Esterase Imaging Data Chest x-ray: Radiologist's Impression: PROCEDURE: XR CHEST 1V INDICATIONS: chest pain TECHNIQUE: One view of the chest was acquired. COMPARISON: None. FINDINGS: Surgical changes and devices: None. Lungs and pleura: Lungs are clear. No pleural effusions or pneumothorax. Mediastinum: Mediastinal contours appear normal. Heart size is normal. Bones and chest wall: No suspicious bony lesions. Overlying soft tissues appear unremarkable. IMPRESSION: No acute cardiopulmonary abnormality is seen. Dictated by: Sincere Waldrop M.D. on 09/10/2023 at 13:09 ECG Data Attestation: I personally reviewed and interpreted this ECG as follows: Prior ECG tracings: not available for review Interpretation: Normal sinus rhythm rate 93 KS interval 140 QRS [address] changes or T-wave inversions MDM Narrative Medical decision making narrative: Patient 38-year-old female chronic ongoing back pain presents today with an near syncopal episode while at [employer]. Does not sound like she has had a full tonic-clonic seizure there is no evidence of such. She was diagnosed with pneumonia but not yet started on antibiotics. She is afebrile and does not appear septic. Blood work has been reviewed she has WBC 9.9, hemoglobin 12.2 hematocrit 36.4, platelets 385, sodium 138, potassium 4.4, chloride 106, carbon dioxide 26, BUN 18, creatinine 0.5 to glucose 91, troponin negative, Viral panel negative Urinalysis negative Blood work reviewed no acute cardiopulmonary process EKG reviewed as above Patient had syncopal episode today while at [employer] while sitting down. She got flushed and had a prodromal syndrome. I suspect that she had a vasovagal reaction. She reports that she was diagnosed with pneumonia however sepsis chest x-ray today is also read as no acute cardiopulmonary process. However she does have some laryngitis. Suspect more of a viral syndrome she was already prescribed doxycycline. I recommend that she can take her doxycycline. I do not think this is why she passed out She also required some pain medication while here in the ED she is chronic ongoing back pain. Pain seems to be better controlled after Dilaudid and Toradol. No injury to her back during her syncopal episode. Discharge Plan Departure Patient Disposition: Home Clinical Impression: Vasovagal syncope, Atypical pneumonia Instructions: DI for Syncope in Adults (Fainting), Atypical Pneumonia Activity Restrictions/Additional Instructions: *You have been diagnosed with atypical pneumonia, fainting episode *What to do: At this time difficult to tell what actually caused your fainting episode today. Please go home and eat and drink fluids. You may have a mild case of some pneumonia recommend that you take your doxycycline as previously prescribed *Continue to take medications as directed *Follow up with your primary care provider in 2-3 days or call [phone] *Return to ER if you should have increasing chest pain palpitations fever chills confusion recurrent episode of passing out [or] any new, worsening or concerning symptoms Prescriptions: No Action gabapentin 800 mg tablet 800 mg PO 3XD cyclobenzaprine 10 mg tablet 10 mg PO BID metformin 500 mg tablet 1,000 mg PO BID meloxicam 15 mg tablet 15 mg PO DAILY oxycodone-acetaminophen 10-325 mg tablet 1 tab PO Q6H PRN (Reason: pain) morphine 100 mg tablet extended release 100 mg PO DAILY diazepam 2 mg tablet 2 mg PO BID PRN (Reason: Anxiety) vilazodone 40 mg tablet 50 mg PO DAILY Qsymia 7.5-46 mg capsule, ER multiphase 24 hr 1 cap PO DAILY buspirone 30 mg tablet 30 mg PO BID Referrals: Socrates Franklin MD [Primary Care Provider] - Stand Alone Forms: Patient Portal/API
[2023-09-10 14:05] LABS: Add Manual Diff / Slide Review NO; Basophils Absolute Auto 100 /uL (0-100); Basophils Percent Auto 0.7 % (0-2); Eosinophils Absolute Auto 300 /uL (0-450); Eosinophils Percent Auto 2.7 % (2-4); Hematocrit 36.4 % (36-46); Hemoglobin 12.2 g/dL (12.0-16.0); Lymphocytes Absolute Auto 2800 /uL (1100-4500); Lymphocytes Percent Auto 28.2 % (25-40); Mean Corpuscular HGB Conc 33.5 % (30-36); Mean Corpuscular Hemoglobin 28.8 PG (26-34); Mean Corpuscular Volume 85.9 fL (80-100); Monocytes Absolute Auto 700 /uL (0-900); Monocytes Percent Auto 7.5 % (3-14); Neutrophils Absolute Auto 6000 /uL (1500-7000); Neutrophils Percent Auto 60.9 % (50-75); Platelet Count 385 X10^3/uL (150-400); Red Blood Cell Count 4.23 X10^6/uL (4.0-5.2); Red Cell Distribution Width 12.8 % (11.6-14.8); White Blood Cell Count 9.9 X10^3/uL (4.5-11.0)
[2023-09-10] MEDS: KETOROLAC 30 MG/ML VIAL 15 MG IV (14:19)
[2023-09-10] MEDS: ALBUTEROL/IPRATROPIUM 3 ML AMPUL INH (14:20)
[2023-09-10] MEDS: SODIUM CHLORIDE 0.9% 1,000 ML 1000 ML IV (14:20)
[2023-09-10 14:24] LABS: INR 0.9 (0.9-1.3); Prothrombin Time 10.4 SECONDS (9.4-12.5)
[2023-09-10 14:25] LABS: Lactate (Lactic Acid) 2.1 mmol/L (0.7-2.1)
[2023-09-10] MEDS: HYDROMORPHONE 0.5 MG INJ IV (14:25)
[2023-09-10 14:27] LABS: PTT Partial Thromboplastin Tim 37 SECONDS (25.1-36.5)
[2023-09-10 14:34] LABS: D Dimer 337 ng/ml (<500)
[2023-09-10 14:39] LABS: Alanine Aminotransferase 20 IU/L (<35); Albumin 4.2 g/dL (3.5-5.0); Albumin Globulin Ratio 1.5 (1.0-2.8); Alkaline Phosphatase 72 U/L (38-126); Aspartate Aminotransferase 23 IU/L (14-36); BUN Creatinine Ratio 34.6 (6-22); Bilirubin Total 0.3 mg/dL (0.2-1.3); Blood Urea Nitrogen 18 mg/dL (7-17); Calcium 9.2 mg/dL (8.4-10.2); Carbon Dioxide 26 mmol/L (22-32); Chloride 106 mmol/L (98-107); Creatine Kinase 58 U/L (30-135); Estimated Glomerular Filt Rate > 60 mL/min (>60); Globulin 2.8 g/dL (1.7-4.1); Glucose 91 mg/dL (70-100); HEMOLYSIS 15 (0-50); Lipase 101 U/L (23-300); Magnesium 1.7 mg/dL (1.6-2.3); Potassium 4.4 mmol/L (3.4-5.1); Sodium 138 mmol/L (137-145)
[2023-09-10 14:50] LABS: Troponin I < 0.012 ng/mL (0.01-0.034)
[2023-09-10 15:18] LABS: Adenovirus Not Detected (Not Detect); B. parapertussis Not Detected (Not Detecte); Bordetella pertussis Not Detected (Not Detect); Chlamydophila pneumoniae Not Detected (Not Detect); Coronavirus 229E Not Detected (Not Detect); Coronavirus HKU1 Not Detected (Not Detect); Coronavirus NL 63 Not Detected (Not Detect); Coronavirus OC43 Not Detected (Not Detect); Human Metapneumovirus Not Detected (Not Detect); Human Rhinovirus/Enterovirus Not Detected (Not Detect); Influenza A Not Detected (Not Detect); Influenza B Not Detected (Not Detect); Mycoplasma pneumoniae Not Detected (Not Detect); Parainfluenza Virus 1 Not Detected (Not Detect); Parainfluenza Virus 2 Not Detected (Not Detect); Parainfluenza Virus 3 Not Detected (Not Detect); Parainfluenza Virus 4 Not Detected (Not Detect); Respiratory Syncytial Virus Not Detected (Not Detect); SARS- CoV-2 Not Detected (Not Detecte)
[2023-09-10 15:49] LABS: Reflexed Lactate in 2 Hours Y
[2023-09-10] MEDS: OXYCODONE/ACETAMINOPHEN 5/325 TABLET 2 TAB PO (16:06)
[2023-09-10 16:08] LABS: Bacteria Urine Occasional (0-1); Culture Indicated Urine Cult Not Indicated; RBC Urine None Seen (0-5/HPF); Squamous Epithelial Cell Urine 1-5 /HPF (0-5/HPF); Urine Volume 10mL (spun); WBC Urine None Seen (0-5/HPF)
== END 2023-09-10 16:22 | disposition home or self-care (01) ==
PROVIDERS: Emergency Provider Emergency Medicine; PCP Internal Medicine
DX: R55 Syncope and collapse (principal); J18.9 Pneumonia, unspecified organism; R07.9 Chest pain, unspecified; Z79.899 Other long term (current) drug therapy; Z20.822 Contact with and (suspected) exposure to COVID-19
CPT/HCPCS: 36415; 71045; 80053; 81003; 81015; 81025; 82550; 83605; 83690; 83735; 84484; 85025; 85379; 85610; 85730; 87633; 93005; 96361; 96374; 96375; 99284; J1170; J1885

== ENCOUNTER → 2024-02-23 09:35 | Outpatient (CLI) | payer OTHER, SELFPAY | PROVIDERS: PCP Internal Medicine; Visit Provider Physician Assistant | DX: T81.89XA Other complications of procedures, not elsewhere classified, initial encounter (principal); L98.8 Other specified disorders of the skin and subcutaneous tissue; S31.109A Unspecified open wound of abdominal wall, unspecified quadrant without penetration into peritoneal cavity, initial encounter; R60.0 Localized edema | CPT/HCPCS: 97597; 99203; 99213 ==

== ENCOUNTER → 2024-03-01 09:56 | Outpatient (CLI) | payer OTHER, SELFPAY | PROVIDERS: PCP Internal Medicine; Visit Provider Surgery | DX: T81.31XA Disruption of external operation (surgical) wound, not elsewhere classified, initial encounter (principal); S21.201A Unspecified open wound of right back wall of thorax without penetration into thoracic cavity, initial encounter; D68.00 Von Willebrand disease, unspecified | CPT/HCPCS: 11042; 99213 ==

== ENCOUNTER → 2024-03-15 10:31 | Outpatient (CLI) | payer OTHER, SELFPAY | PROVIDERS: PCP Internal Medicine; Visit Provider Physician Assistant | DX: T81.31XD Disruption of external operation (surgical) wound, not elsewhere classified, subsequent encounter (principal); S31.000D Unspecified open wound of lower back and pelvis without penetration into retroperitoneum, subsequent encounter; D68.00 Von Willebrand disease, unspecified | CPT/HCPCS: 99212 ==

== ENCOUNTER 2024-05-08 15:17 | Emergency (ER) | payer OTHER, SELFPAY ==
[2024-05-08] VITALS (9 sets, daily range): BP systolic 125–148; BP diastolic 71–100; PULSE 93–129; RESP 18–20; TEMP 37.3; O2SAT 93–100; BMI 36.6
--- NOTE | 2024-05-08 15:49 | PC.NURSE ---
Pt reports tenderness to touch on lower lumbar spine when this RN palpates. She is tearful and unable to get comfortable. This RN requests a bed for her and notifies provider Augustine of patient presentation.
--- NOTE | 2024-05-08 15:53 | ED_ITS ---
HPI - Back Pain/Injury <Opal Bradshaw PA-C - Last Filed: 05/08/24 20:26> General Chief Complaint: Back Pain/Injury Stated Complaint: Low Back Pain Time Seen by Provider: 05/08/24 15:42 History of Present Illness HPI Narrative: Ms. Belle Prince is a 39-year-old female with a past medical history of multiple lumbar spinal surgeries most recently December [address] Cannon at [facility], Von Willebrand's disease, chronic pain on home Dilaudid who presents to the emergency department via EMS for acute on chronic low back pain radiating down the left leg. She is accompanied by her . Patient states ever since her surgery in December her pain has been worsening. Reports being hospitalized for 1 month after surgery due to complications and also had pneumonia for multiple months. Reports that she is exhausted numerous medications and is now only taking Dilaudid. States that despite this she lives in pain every day but about 1 week ago while moving in bed she heard and felt a pop and has been having severe pain in the low back since then. Pain is constant and is across the entire low back, radiating into the left leg. She occasionally has numbness/tingling/fire sensation in left leg. Patient states over the last week she has just felt generally unwell, not sleeping, nauseous because of the pain. She last took 4 mg of Dilaudid at 8:45 a.m. this morning. She denies chest pain, shortness of breath, cough, known fever, dysuria, hematuria, bowel or bladder incontinence, IV drug use. She states she cannots take any NSAIDs due to VWD. Patient reports she will be having some type of injection done on 05/20/2024 for her pain with plans for physical therapy following these injections. Related Data Home Medications Medication Instructions Recorded Confirmed buspirone 30 mg tablet 30 mg PO BID 09/10/23 09/10/23 cyclobenzaprine 10 mg tablet 10 mg PO BID 09/10/23 09/10/23 diazepam 2 mg tablet 2 mg PO BID PRN Anxiety 09/10/23 09/10/23 gabapentin 800 mg tablet 800 mg PO 3XD 09/10/23 09/10/23 meloxicam 15 mg tablet 15 mg PO DAILY 09/10/23 09/10/23 metformin 500 mg tablet 1,000 mg PO BID 09/10/23 09/10/23 morphine 100 mg tablet,extended 100 mg PO DAILY 09/10/23 09/10/23 release oxycodone-acetaminophen 10 mg-325 1 tab PO Q6H PRN pain 09/10/23 09/10/23 mg tablet phentermine 7.5 mg-topiramate ER 1 cap PO DAILY 09/10/23 09/10/23 46 mg capsule,ext.release 24hr mphase (Qsymia) vilazodone 40 mg tablet 50 mg PO DAILY 09/10/23 09/10/23 hydromorphone 2 mg tablet 4 mg PO Q4H PRN pain 05/08/24 05/08/24 Previous Rx's Medication Instructions Recorded hydromorphone 2 mg tablet 2 mg PO Q4-6H PRN pain #10 tabs 05/09/24 (Dilaudid) prednisone 10 mg tablets in a dose See Rx Instructions PO .COMPLEX 05/09/24 pack #21 ea Allergies Allergy/AdvReac Type Severity Reaction Status Date / Time meperidine [From Demerol] Allergy Hypertensio Verified 05/08/24 15:28 n piperacillin [From Zosyn] Allergy Hypotension Verified 05/08/24 15:28 tazobactam [From Zosyn] Allergy Hypotension Verified 05/08/24 15:28 codeine AdvReac Hives Verified 05/08/24 15:28 metoclopramide [From Reglan] AdvReac Anxiety Verified 05/08/24 15:28 ondansetron [From Zofran] AdvReac Hives Verified 05/08/24 15:28 Sulfa (Sulfonamide AdvReac Hives Verified 05/08/24 15:28 Antibiotics) Review of Systems <Opal Bradshaw PA-C - Last Filed: 05/08/24 20:26> Review of Systems ROS Unobtainable: All systems reviewed & are unremarkable except as noted in HPI and below Patient History <Opal Bradshaw PA-C - Last Filed: 05/08/24 20:26> Social History Smoking Status: Current every day smoker Smoking Status: Current every day smoker tobacco type: cigarettes alcohol intake frequency: holidays/special occasions only Exam <SHAHIDA Winston Last Filed: 05/08/24 20:26> Narrative Exam Narrative: GENERAL: 39 year old patient appears stated age. Well-developed patient, in visible discomfort, lying in stretcher on right side, pain with moving. HEAD: Atraumatic. Normocephalic. EYES: PERRL. Extraocular motions intact. No scleral icterus. No injection or drainage. NECK: Trachea midline. Cervical ROM intact. CARDIOVASCULAR: Regular rate and rhythm. Strong DP and PT pulses bilaterally with brisk capillary refill on toes. RESPIRATORY: ?Nonlabored respirations. ?Speaking in clear, full sentences. ?Clear to auscultation. Breath sounds equal bilaterally. No wheezes, rales, or rhonchi. ? GASTROINTESTINAL: Abdomen soft, non-tender, nondistended. LLQ healed surgical incision. EXTREMITIES: No edema or joint tenderness. BACK: Multiple healed lumbar spinal surgery scars. Diffuse tenderness to palpation over midline lumbar region and left and right paraspinal lumbar region. No upper back or neck tenderness. +Left straight leg raise. -Right. NEURO: AOx3. ?Clear speech. Equal sensation of upper extremities, reports decreased sensation of left lower extremity. She is able to actively elevate both legs however left less than right 2/2 pain. 4/5 left dorsiflexion and plantar flexion in comparison to 5/5 right. SKIN: No rash or erythema of visible areas Initial Vital Signs Initial Vital Signs: Vital Signs Temperature 99.2 F 05/08/24 15:28 Pulse Rate 129 H 05/08/24 15:28 Respiratory Rate 20 05/08/24 15:28 Blood Pressure 135/100 H 05/08/24 15:28 Pulse Oximetry 98 05/08/24 15:28 Oxygen Delivery Method Room Air 05/08/24 15:28 <Gabriela Vides DO - Last Filed: 05/09/24 05:46> Initial Vital Signs Initial Vital Signs: Vital Signs Temperature 99.2 F 05/08/24 15:28 Pulse Rate 129 H 05/08/24 15:28 Respiratory Rate 20 05/08/24 15:28 Blood Pressure 135/100 H 05/08/24 15:28 Pulse Oximetry 98 05/08/24 15:28 Oxygen Delivery Method Room Air 05/08/24 15:28 Course <SHAHIDA Winston Last Filed: 05/08/24 20:26> Orders Ordered: ED Orders 05/08/24 22:18 XR lumbar spine 2-3V Stat Discontinued Medications Dexamethasone (Dexamethasone 10 Mg/Ml Vial) 10 mg IV NOW ONE Stop: 05/08/24 17:00 Last Admin: 05/08/24 17:11 Dose: 10 mg Documented By: HALEIGH Hydromorphone HCl (Hydromorphone 0.5 Mg Inj) 0.5 mg IV NOW ONE Stop: 05/08/24 16:05 Last Admin: 05/08/24 16:39 Dose: 0.5 mg Documented By: HALEIGH Hydromorphone HCl (Hydromorphone 1 Mg Inj) 1 mg IV NOW ONE Stop: 05/08/24 17:00 Last Admin: 05/08/24 17:10 Dose: 1 mg Documented By: HALEIGH Hydromorphone HCl (Hydromorphone 1 Mg Inj) 1 mg IV NOW ONE Stop: 05/08/24 19:13 Last Admin: 05/08/24 19:18 Dose: 1 mg Documented By: JL Hydromorphone HCl (Hydromorphone 1 Mg Inj) 1 mg IV NOW ONE Stop: 05/08/24 20:11 Last Admin: 05/08/24 20:16 Dose: 1 mg Documented By: JL Hydromorphone HCl (Hydromorphone 2 Mg Tablet) 4 mg PO NOW ONE Stop: 05/08/24 22:26 Last Admin: 05/08/24 22:29 Dose: 4 mg Documented By: JL Hydromorphone HCl (Hydromorphone 2 Mg Tablet) 2 mg PO NOW ONE Stop: 05/09/24 00:52 Last Admin: 05/09/24 00:53 Dose: Not Given Documented By: Hydromorphone HCl (Hydromorphone 2 Mg Tablet) 4 mg PO NOW ONE Stop: 05/09/24 00:52 Last Admin: 05/09/24 00:58 Dose: 4 mg Documented By: Sodium Chloride (Normal Saline 0.9%) 1,000 mls @ 1,000 mls/hr IV BOLUS ONE Stop: 05/08/24 17:03 Last Infusion: 05/08/24 18:27 Dose: Infused Documented By: Admin: 05/08/24 16:38 Dose: 1,000 mls/hr Documented By: HALEIGH Ketorolac Tromethamine (Ketorolac 30 Mg/Ml Vial) 15 mg IV NOW ONE Stop: 05/08/24 16:05 Last Admin: 05/08/24 16:41 Dose: Not Given Documented By: HALEIGH Lorazepam (Lorazepam 0.5 Mg Tablet) 1 mg PO NOW ONE Stop: 05/08/24 20:20 Last Admin: 05/08/24 21:28 Dose: 1 mg Documented By: JL Promethazine HCl (Promethazine 25 Mg Tablet) 12.5 mg PO NOW ONE Stop: 05/08/24 17:56 Last Admin: 05/08/24 18:27 Dose: 12.5 mg Documented By: ALEJANDRO Vital Signs Vital signs: Vital Signs - 8 hr 05/08/24 23:07 05/08/24 23:30 05/09/24 00:00 Pulse Rate 117 H 108 H 107 H Blood Pressure Pulse Oximetry 98 96 94 Oxygen Delivery Method Room Air 05/09/24 00:30 05/09/24 01:00 Pulse Rate 105 H 115 H Blood Pressure 119/59 L Pulse Oximetry 93 97 Oxygen Delivery Method Room Air <Gabriela Vides DO - Last Filed: 05/09/24 05:46> Orders Ordered: ED Orders 05/08/24 22:18 XR lumbar spine 2-3V Stat Discontinued Medications Dexamethasone (Dexamethasone 10 Mg/Ml Vial) 10 mg IV NOW ONE Stop: 05/08/24 17:00 Last Admin: 05/08/24 17:11 Dose: 10 mg Documented By: HALEIGH Hydromorphone HCl (Hydromorphone 0.5 Mg Inj) 0.5 mg IV NOW ONE Stop: 05/08/24 16:05 Last Admin: 05/08/24 16:39 Dose: 0.5 mg Documented By: HALEIGH Hydromorphone HCl (Hydromorphone 1 Mg Inj) 1 mg IV NOW ONE Stop: 05/08/24 17:00 Last Admin: 05/08/24 17:10 Dose: 1 mg Documented By: HALEIGH Hydromorphone HCl (Hydromorphone 1 Mg Inj) 1 mg IV NOW ONE Stop: 05/08/24 19:13 Last Admin: 05/08/24 19:18 Dose: 1 mg Documented By: JL Hydromorphone HCl (Hydromorphone 1 Mg Inj) 1 mg IV NOW ONE Stop: 05/08/24 20:11 Last Admin: 05/08/24 20:16 Dose: 1 mg Documented By: JL Hydromorphone HCl (Hydromorphone 2 Mg Tablet) 4 mg PO NOW ONE Stop: 05/08/24 22:26 Last Admin: 05/08/24 22:29 Dose: 4 mg Documented By: JL Hydromorphone HCl (Hydromorphone 2 Mg Tablet) 2 mg PO NOW ONE Stop: 05/09/24 00:52 Last Admin: 05/09/24 00:53 Dose: Not Given Documented By: Hydromorphone HCl (Hydromorphone 2 Mg Tablet) 4 mg PO NOW ONE Stop: 05/09/24 00:52 Last Admin: 05/09/24 00:58 Dose: 4 mg Documented By: Sodium Chloride (Normal Saline 0.9%) 1,000 mls @ 1,000 mls/hr IV BOLUS ONE Stop: 05/08/24 17:03 Last Infusion: 05/08/24 18:27 Dose: Infused Documented By: Admin: 05/08/24 16:38 Dose: 1,000 mls/hr Documented By: HALEIGH Ketorolac Tromethamine (Ketorolac 30 Mg/Ml Vial) 15 mg IV NOW ONE Stop: 05/08/24 16:05 Last Admin: 05/08/24 16:41 Dose: Not Given Documented By: HALEIGH Lorazepam (Lorazepam 0.5 Mg Tablet) 1 mg PO NOW ONE Stop: 05/08/24 20:20 Last Admin: 05/08/24 21:28 Dose: 1 mg Documented By: JL Promethazine HCl (Promethazine 25 Mg Tablet) 12.5 mg PO NOW ONE Stop: 05/08/24 17:56 Last Admin: 05/08/24 18:27 Dose: 12.5 mg Documented By: ALEJANDRO Vital Signs Vital signs: Vital Signs - 8 hr 05/08/24 23:07 05/08/24 23:30 05/09/24 00:00 Pulse Rate 117 H 108 H 107 H Blood Pressure Pulse Oximetry 98 96 94 Oxygen Delivery Method Room Air 05/09/24 00:30 05/09/24 01:00 Pulse Rate 105 H 115 H Blood Pressure 119/59 L Pulse Oximetry 93 97 Oxygen Delivery Method Room Air MDM - Back Pain/Injury <Opal Bradshaw PA-C - Last Filed: 05/08/24 20:26> Medical Records Attestation: I reviewed the patient's medical records. Lab Data 05/08/24 16:10 05/08/24 16:10 Labs: Lab Results 05/08/24 05/08/24 05/08/24 Range/Units 16:10 16:50 19:30 WBC 9.3 (4.5-11.0) X10^3/uL RBC 4.99 (4.0-5.2) X10^6/uL Hgb 12.3 (12.0-16.0) g/dL Hct 38.1 (36-46) % MCV 76.3 L (80-100) fL MCH 24.7 L (26-34) PG MCHC 32.3 (30-36) % RDW 17.3 H (11.6-14.8) % Plt Count 437 H (150-400) X10^3/uL Neut % (Auto) 64.8 (50-75) % Lymph % (Auto) 28.8 (25-40) % Norton % (Auto) 5.2 (3-14) % Eos % (Auto) 0.8 L (2-4) % Baso % (Auto) 0.4 (0-2) % Neut # (Auto) 6000 (6108-9575) /uL Lymph # (Auto) 2700 (2271-0083) /uL Norton # (Auto) 500 (0-900) /uL Eos # (Auto) 100 (0-450) /uL Baso # (Auto) 0 (0-100) /uL ESR 15 (0-20) MM/HR Sodium 137 (137-145) mmol/L Potassium 3.7 (3.4-5.1) mmol/L Chloride 103 (98-107) mmol/L Carbon Dioxide 26 (22-32) mmol/L BUN 13 (7-17) mg/dL Creatinine 0.70 (0.52-1.04) mg/dL Estimated GFR > 60 (>60) mL/min BUN/Creatinine Ratio 18.6 (6-22) Glucose 89 (70-100) mg/dL Lactate 0.9 (0.7-2.1) mmol/L Calcium 9.2 (8.4-10.2) mg/dL Total Bilirubin 0.4 (0.2-1.3) mg/dL AST 24 (14-36) IU/L ALT 22 (<35) IU/L Alkaline Phosphatase 97 (38-126) U/L C-Reactive Protein < 0.5 (<1.0) mg/dL Total Protein 8.1 (6.3-8.2) g/dL Albumin 4.7 (3.5-5.0) g/dL Globulin 3.4 (1.7-4.1) g/dL Albumin/Globulin Ratio 1.4 (1.0-2.8) Lipase 44 (23-300) U/L Urine RBC 1-5/hpf (0-5/HPF) Urine WBC 1-5/hpf (0-5/HPF) Ur Squamous Epith Cells 1-5 /hpf (0-5/HPF) Urine Bacteria Few (2-10) H (None) Ur Culture Indicated? Cult not indicated Vol Urine Centrifuged 10ml (spun) SARS-CoV-2 (PCR) Negative (Negative) Influenza A (RT-PCR) Flu a negative (NEGATIVE) Influenza B (RT-PCR) Flu b negative (NEGATIVE) RSV (PCR) Negative (Negative) Point of Care Testing Test Results Negative Imaging Data Chest x-ray: Radiologist's Impression: PROCEDURE: XR CHEST 1V INDICATIONS: severe left sided back pain TECHNIQUE: One view of the chest was acquired. COMPARISON: [facility], , XR CHEST 1V, 09/10/2023, 13:18. FINDINGS: Surgical changes and devices: None. Lungs and pleura: Lungs are clear. No pleural effusions or pneumothorax. Mediastinum: Mediastinal contours appear normal. Heart size is normal. Bones and chest wall: No suspicious bony lesions. Overlying soft tissues appear unremarkable. IMPRESSION: No acute pulmonary process. [facility] Narrative Medical decision making narrative: 39-year-old female with a past medical history of multiple lumbar spinal surgeries most recently December [address] Cannon at [facility], Von Willebrand's disease, chronic pain on home Dilaudid who presents to the emergency department via EMS for acute on chronic low back pain radiating down the left leg. Her contributes to the history. Unable to take NSAIDs due to VWD. Differential diagnosis includes but is not limited to epidural abscess, diskitis, pyelonephritis, UTI, acute on chronic pain, lumbar radiculopathy, spinal stenosis, herniated disc, muscle spasms, fracture, etc. On exam patient is acute low back pain, she is only able to lay on her right side in stretcher. Reports worsening pain ever since her last surgery in December however over this last week the pain got acutely worse and she has also been feeling overall unwell. Exam reveals diffuse tenderness to palpation of the lumbar region, positive left straight leg raise, 4/5 strength LLL compared to R 5/5. Triage vital signs reveal a BP of 135/100, pulse of 129, RR 20, temp 99.2?, O2 sat 98% on room air. Immediately discussed the case with the attending ER physician, Dr. Guzman. We will proceed with workup in fast track part of ED including baseline labs including ESR and CRP. Will obtain MRI with and without contrast of the lumbar spine for further evaluate for possible epidural abscess or diskitis. In addition we will check urine and viral swab. No external signs of cellulitis or palpable abscess on exam. We will treat pain with IV Dilaudid. Labs reveal normal WBC count 9.3, hemoglobin 12.3 hematocrit 38.1. Platelets elevated 437. ESR normal at 15. CRP negative at less than 0.5. Normal lipase 44. CMP within normal limits, normal electrolytes and renal function. Lactate normal 0.9. Chest XR WNL. Upon repeat vital signs, significant improvement with heart rate of 95, 100% O2 on room air, blood pressure 125/71. 1700: Reassessed patient, discussed reassuring labs so far. Reports 1st dose of Dilaudid did not improve her pain, additional dose ordered in addition to Decadron. However she is sitting up in bed vital signs significantly improved, looking better than arrival. She understands MRI will be in 2.5 hours. Patient will be transferred to the main emergency department due to shift change. Nighttime physician aware of pending MRI imaging. <Gabriela Vides, DO - Last Filed: 05/09/24 05:46> Lab Data Labs: Lab Results 05/08/24 05/08/24 05/08/24 Range/Units 16:10 16:50 19:30 WBC 9.3 (4.5-11.0) X10^3/uL RBC 4.99 (4.0-5.2) X10^6/uL Hgb 12.3 (12.0-16.0) g/dL Hct 38.1 (36-46) % MCV 76.3 L (80-100) fL MCH 24.7 L (26-34) PG MCHC 32.3 (30-36) % RDW 17.3 H (11.6-14.8) % Plt Count 437 H (150-400) X10^3/uL Neut % (Auto) 64.8 (50-75) % Lymph % (Auto) 28.8 (25-40) % Norton % (Auto) 5.2 (3-14) % Eos % (Auto) 0.8 L (2-4) % Baso % (Auto) 0.4 (0-2) % Neut # (Auto) 6000 (1579-1456) /uL Lymph # (Auto) 2700 (1731-8118) /uL Norton # (Auto) 500 (0-900) /uL Eos # (Auto) 100 (0-450) /uL Baso # (Auto) 0 (0-100) /uL ESR 15 (0-20) MM/HR Sodium 137 (137-145) mmol/L Potassium 3.7 (3.4-5.1) mmol/L Chloride 103 (98-107) mmol/L Carbon Dioxide 26 (22-32) mmol/L BUN 13 (7-17) mg/dL Creatinine 0.70 (0.52-1.04) mg/dL Estimated GFR > 60 (>60) mL/min BUN/Creatinine Ratio 18.6 (6-22) Glucose 89 (70-100) mg/dL Lactate 0.9 (0.7-2.1) mmol/L Calcium 9.2 (8.4-10.2) mg/dL Total Bilirubin 0.4 (0.2-1.3) mg/dL AST 24 (14-36) IU/L ALT 22 (<35) IU/L Alkaline Phosphatase 97 (38-126) U/L C-Reactive Protein < 0.5 (<1.0) mg/dL Total Protein 8.1 (6.3-8.2) g/dL Albumin 4.7 (3.5-5.0) g/dL Globulin 3.4 (1.7-4.1) g/dL Albumin/Globulin Ratio 1.4 (1.0-2.8) Lipase 44 (23-300) U/L Urine RBC 1-5/hpf (0-5/HPF) Urine WBC 1-5/hpf (0-5/HPF) Ur Squamous Epith Cells 1-5 /hpf (0-5/HPF) Urine Bacteria Few (2-10) H (None) Ur Culture Indicated? Cult not indicated Vol Urine Centrifuged 10ml (spun) SARS-CoV-2 (PCR) Negative (Negative) Influenza A (RT-PCR) Flu a negative (NEGATIVE) Influenza B (RT-PCR) Flu b negative (NEGATIVE) RSV (PCR) Negative (Negative) Point of Care Testing Test Results Negative Imaging Data Lspine MR: Radiologist's Impression: Close Lumbar Spine MRI (Signed) MarthaZionn - 05/08/24 Chest X-Ray (Signed) Isamar Garcia - 05/08/24 Launch?[place] [address] Magnetic Resonance Report Signed Patient: Belle Prince MR#: [id number] : 1985 Acct:[id number] Age/Sex: 39 / F Date of Service: 05/08/24 Loc: ED Accession Number: [id number] Procedure: MR lumbar spine wo/w con Ordering Provider: Opal Bradshaw PA-C PROCEDURE: MR LUMBAR SPINE WO/W CON INDICATIONS: Concern epidural abscess/diskitis; severe pain; rad L leg TECHNIQUE: Noncontrast sagittal T1 spin echo and T2 fast spin echo, sagittal STIR, axial T1 and T2 fast spin echo through the lumbar spine. In cases with scoliosis, additional coronal T2 fast spin echo may be performed. After the administration of contrast, sagittal and axial T1 spin echo with fat saturation through the lumbar spine. COMPARISON: [facility], [place], ID BONE SPECT WITH 3 PHASE, 08/31/2023, 11:56. [facility], CT, CT LUMBAR SPINE WO CON, 07/19/2023, 13:31. FINDINGS: Image quality: Fair; susceptibility artifact secondary to pre-existing lumbar fusion hardware limits evaluation Enhancement: No abnormal masslike or nodular enhancement. Anatomy: There are 5 nonrib-bearing lumbar vertebrae. Bones: Marrow signal within normal limits. The vertebral body heights are preserved. Prior posterior fusion at L4-L5 and anterior screw placement at S1. Alignment: Preservation of lumbar lordosis. Discs: Intervertebral disc spacer placement at L4-L5 and L5-S1. Otherwise, multilevel disc desiccation with preserved height. No inter discal fluid signal or endplate destruction within the limits of susceptibility artifact. Spinal cord: The conus medullaris ends at the level of T12-L1. No abnormal cord signal. Muscles: Mild diffuse paraspinal muscle atrophy. 4.1 cm fluid collection along the left L4-L5 dorsal paraspinal soft tissues (4/12) along the postsurgical region. Prevertebral: No prevertebral soft tissue edema. No abdominal aortic aneurysm. No abnormal prevertebral soft tissue mass in the [id number]. Central canal: No severe central canal stenosis. Neural foramina: No severe foraminal stenosis. Moderate left neural foraminal stenosis at the L4-L5 level with contact of disc material on the descending L4 nerve root (2/12), although evaluation is limited by susceptibility artifact. IMPRESSION: 1. No MR evidence of discitis-osteomyelitis within the limitations of susceptibility artifact. 2. Moderate left L4-L5 foraminal stenosis. 3. Dorsal paraspinal 4.1 cm fluid collection along the left L4-L5 level, which may represent a seroma. Please correlate for history of recent surgery. Dictated by: Paulie Thomas M.D. on 05/08/2024 at 20:16 Approved by: Paulie Thomas M.D. on 05/08/2024 at 20:26 [facility] Narrative Medical decision making narrative: 39-year-old female with a past medical history of multiple lumbar spinal surgeries most recently December [address] Cannon at [facility], Von Willebrand's disease, chronic pain on home Dilaudid who presents to the emergency department via EMS for acute on chronic low back pain radiating down the left leg. Her contributes to the history. Unable to take NSAIDs due to VWD. Differential diagnosis includes but is not limited to epidural abscess, diskitis, pyelonephritis, UTI, acute on chronic pain, lumbar radiculopathy, spinal stenosis, herniated disc, muscle spasms, fracture, etc. On exam patient is acute low back pain, she is only able to lay on her right side in stretcher. Reports worsening pain ever since her last surgery in December however over this last week the pain got acutely worse and she has also been feeling overall unwell. Exam reveals diffuse tenderness to palpation of the lumbar region, positive left straight leg raise, 4/5 strength LLL compared to R 5/5. Triage vital signs reveal a BP of 135/100, pulse of 129, RR 20, temp 99.2?, O2 sat 98% on room air. Immediately discussed the case with the attending ER physician, Dr. Guzman. We will proceed with workup in fast track part of ED including baseline labs including ESR and CRP. Will obtain MRI with and without contrast of the lumbar spine for further evaluate for possible epidural abscess or diskitis. In addition we will check urine and viral swab. No external signs of cellulitis or palpable abscess on exam. We will treat pain with IV Dilaudid. Labs reveal normal WBC count 9.3, hemoglobin 12.3 hematocrit 38.1. Platelets elevated 437. ESR normal at 15. CRP negative at less than 0.5. Normal lipase 44. CMP within normal limits, normal electrolytes and renal function. Lactate normal 0.9. Chest XR WNL. Upon repeat vital signs, significant improvement with heart rate of 95, 100% O2 on room air, blood pressure 125/71. 1700: Reassessed patient, discussed reassuring labs so far. Reports 1st dose of Dilaudid did not improve her pain, additional dose ordered in addition to Decadron. However she is sitting up in bed vital signs significantly improved, looking better than arrival. She understands MRI will be in 2.5 hours. Patient will be transferred to the main emergency department due to shift change. Nighttime physician aware of pending MRI imaging. 05/08/2024 Dr. Vides: Patient signed out to myself by MIGUELITO Bradshaw, reviewed patient's chart history was seen by myself patient's labs overall appropriate, chest x-ray was negative MR L-spine with and without contrast was pending results show no evidence of diskitis/osteomyelitis with the limitations susceptibility artifact moderate left L4-L5 foraminal stenosis and dorsal paraspinal 4.1 cm fluid collection along the left L4-L5 level which may represent seroma. Patient had spinal surgery in December of 2023. Patient has received fluids, several doses of Dilaudid, dexamethasone and promethazine. Reviewed patient's findings she has a CT abdomen pelvis were on 01/13 that she showed me from her phone through her MyChart which did not show a fluid collection at that time. She states no interventions since her surgery. Discussed with patient she would like to see images Images pushed to [facility] will consult with neurosurgery: Patient's workup thus far does not indicate infection but does have a fluid collection that is 4.1 cm along the left L4-L5 level no evidence of diskitis/osteomyelitis. Labs, labs imaging and findings from today were reviewed with the patient. She notes that she rolled over in bed in the last week felt a pop and had increased pain throughout the week and then was bending over when she felt like her leg was going to give out and increasingly painful today. Talked to coordinator @ [phone], would like to consult with neurosurgeon patient fluid collection not appreciated on patient's CT imaging from December 2021 that appears new she has not increased pain but no other signs of infection on her imaging or with labs. Spoke with Dr. Viktor carpio at [facility] @ [phone]. Reviewed MRI does not see any major concerning changes asked for standing L-spine series of patient if patient is not able to stand lumbar spine series regular while laying to evaluate for any broken hardware if this is negative does not need transfer or acute intervention. Lumbar spine x-ray does not show any acute change reviewed recommendations from neurosurgery patient states she was mostly taking narcotics is taking a lot of other things in the past steroids somewhat helpful is open to adding this back. We will give a short course to take a little bit additional oral Dilaudid. Patient is normally at 4 mg every 4 hours. She states she was not taking any regular muscle relaxers, NSAIDs for Neurontin/gabapentin. Discussed no need for transfer at this time could talk with hospitalist about admission but likely do not have a lot to offer besides pain medication patient feels comfortable returning home with return precautions. She has follow up on the May 20 with Neurosurgery for back injections and follow up on the with her other physician. Discharge Plan Departure Patient Disposition: Home Clinical Impression: Low back pain Activity Restrictions/Additional Instructions: Your imaging does show fluid collection that is 4.1 cm in the dorsal paraspinal area along the left L4-L5 level did review this with the on-call neurosurgeon at [facility]. Your hardware appears intact on your x-ray imaging as well. You can continue your home pain medication as prescribed, you can take an additional 2 mg every 4-6 hours as needed. A short term prescription was sent to [facility] in [place]. A prescription for prednisone is also included. Take this until completed. Please return for fevers, rapidly worsening symptoms, new loss of bowel or bladder control, new weakness, inability to lift your move your extremities or other new or other concerning changes. Prescriptions: New hydromorphone [Dilaudid] 2 mg tablet 2 mg PO Q4-6H PRN (Reason: pain) Qty: 10 0RF prednisone 10 mg tablets,dose pack See Rx Instructions .ROUTE .COMPLEX Qty: 21 0RF Rx Instructions: orally per package directions No Action hydromorphone 2 mg tablet 4 mg PO Q4H PRN (Reason: pain) gabapentin 800 mg tablet 800 mg PO 3XD cyclobenzaprine 10 mg tablet 10 mg PO BID metformin 500 mg tablet 1,000 mg PO BID meloxicam 15 mg tablet 15 mg PO DAILY oxycodone-acetaminophen 10-325 mg tablet 1 tab PO Q6H PRN (Reason: pain) morphine 100 mg tablet extended release 100 mg PO DAILY diazepam 2 mg tablet 2 mg PO BID PRN (Reason: Anxiety) vilazodone 40 mg tablet 50 mg PO DAILY Qsymia 7.5-46 mg capsule, ER multiphase 24 hr 1 cap PO DAILY buspirone 30 mg tablet 30 mg PO BID Referrals: Socrates Franklin MD [Primary Care Provider] - Stand Alone Forms: Patient Portal/API/Survey
--- NOTE | 2024-05-08 16:04 | DI.RAD.S_ITS ---
PROCEDURE: XR CHEST 1V INDICATIONS: severe left sided back pain TECHNIQUE: One view of the chest was acquired. COMPARISON: [facility], CR, XR CHEST 1V, 09/10/2023, 13:18. FINDINGS: Surgical changes and devices: None. Lungs and pleura: Lungs are clear. No pleural effusions or pneumothorax. Mediastinum: Mediastinal contours appear normal. Heart size is normal. Bones and chest wall: No suspicious bony lesions. Overlying soft tissues appear unremarkable. IMPRESSION: No acute pulmonary process. Dictated by: Isamar Garcia M.D. on 05/08/2024 at 16:33 Approved by: Isamar Garcia M.D. on 05/08/2024 at 16:33
--- NOTE | 2024-05-08 16:12 | DI.MRI.S_ITS ---
PROCEDURE: MR LUMBAR SPINE WO/W CON INDICATIONS: Concern epidural abscess/diskitis; severe pain; rad L leg TECHNIQUE: Noncontrast sagittal T1 spin echo and T2 fast spin echo, sagittal STIR, axial T1 and T2 fast spin echo through the lumbar spine. In cases with scoliosis, additional coronal T2 fast spin echo may be performed. After the administration of contrast, sagittal and axial T1 spin echo with fat saturation through the lumbar spine. COMPARISON: [facility], NM, NM BONE SPECT WITH 3 PHASE, 08/31/2023, 11:56. [facility], CT, CT LUMBAR SPINE WO CON, 07/19/2023, 13:31. FINDINGS: Image quality: Fair; susceptibility artifact secondary to pre-existing lumbar fusion hardware limits evaluation Enhancement: No abnormal masslike or nodular enhancement. Anatomy: There are 5 nonrib-bearing lumbar vertebrae. Bones: Marrow signal within normal limits. The vertebral body heights are preserved. Prior posterior fusion at L4-L5 and anterior screw placement at S1. Alignment: Preservation of lumbar lordosis. Discs: Intervertebral disc spacer placement at L4-L5 and L5-S1. Otherwise, multilevel disc desiccation with preserved height. No inter discal fluid signal or endplate destruction within the limits of susceptibility artifact. Spinal cord: The conus medullaris ends at the level of T12-L1. No abnormal cord signal. Muscles: Mild diffuse paraspinal muscle atrophy. 4.1 cm fluid collection along the left L4-L5 dorsal paraspinal soft tissues (4/12) along the postsurgical region. Prevertebral: No prevertebral soft tissue edema. No abdominal aortic aneurysm. No abnormal prevertebral soft tissue mass in the [id number]. Central canal: No severe central canal stenosis. Neural foramina: No severe foraminal stenosis. Moderate left neural foraminal stenosis at the L4-L5 level with contact of disc material on the descending L4 nerve root (2/12), although evaluation is limited by susceptibility artifact. IMPRESSION: 1. No MR evidence of discitis-osteomyelitis within the limitations of susceptibility artifact. 2. Moderate left L4-L5 foraminal stenosis. 3. Dorsal paraspinal 4.1 cm fluid collection along the left L4-L5 level, which may represent a seroma. Please correlate for history of recent surgery. Dictated by: Paulie Thomas M.D. on 05/08/2024 at 20:16 Approved by: Paulie Thomas M.D. on 05/08/2024 at 20:26
[2024-05-08 16:19] LABS: Add Manual Diff / Slide Review NO; Basophils Absolute Auto 0 /uL (0-100); Basophils Percent Auto 0.4 % (0-2); Eosinophils Absolute Auto 100 /uL (0-450); Eosinophils Percent Auto 0.8 % (2-4); Hematocrit 38.1 % (36-46); Hemoglobin 12.3 g/dL (12.0-16.0); Lymphocytes Absolute Auto 2700 /uL (1100-4500); Lymphocytes Percent Auto 28.8 % (25-40); Mean Corpuscular HGB Conc 32.3 % (30-36); Mean Corpuscular Hemoglobin 24.7 PG (26-34); Mean Corpuscular Volume 76.3 fL (80-100); Monocytes Absolute Auto 500 /uL (0-900); Monocytes Percent Auto 5.2 % (3-14); Neutrophils Absolute Auto 6000 /uL (1500-7000); Neutrophils Percent Auto 64.8 % (50-75); Platelet Count 437 X10^3/uL (150-400); Red Blood Cell Count 4.99 X10^6/uL (4.0-5.2); Red Cell Distribution Width 17.3 % (11.6-14.8); White Blood Cell Count 9.3 X10^3/uL (4.5-11.0)
[2024-05-08 16:38] LABS: Alanine Aminotransferase 22 IU/L (<35); Albumin 4.7 g/dL (3.5-5.0); Albumin Globulin Ratio 1.4 (1.0-2.8); Alkaline Phosphatase 97 U/L (38-126); Aspartate Aminotransferase 24 IU/L (14-36); BUN Creatinine Ratio 18.6 (6-22); Bilirubin Total 0.4 mg/dL (0.2-1.3); Blood Urea Nitrogen 13 mg/dL (7-17); Calcium 9.2 mg/dL (8.4-10.2); Carbon Dioxide 26 mmol/L (22-32); Chloride 103 mmol/L (98-107); Estimated Glomerular Filt Rate > 60 mL/min (>60); Globulin 3.4 g/dL (1.7-4.1); Glucose 89 mg/dL (70-100); HEMOLYSIS < 15 (0-50); Lipase 44 U/L (23-300); Potassium 3.7 mmol/L (3.4-5.1); Sodium 137 mmol/L (137-145); Total Protein 8.1 g/dL (6.3-8.2)
[2024-05-08] MEDS: SODIUM CHLORIDE 0.9% 1,000 ML 1000 ML IV (16:38)
[2024-05-08 16:39] LABS: Lactate (Lactic Acid) 0.9 mmol/L (0.7-2.1)
[2024-05-08] MEDS: HYDROMORPHONE 0.5 MG INJ IV (16:39)
[2024-05-08 16:40] LABS: Erythrocyte Sedimentation Rate 15 MM/HR (0-20)
[2024-05-08 16:43] LABS: C-Reactive Protein Quant < 0.5 mg/dL (<1.0)
[2024-05-08] MEDS: HYDROMORPHONE 1 MG INJ IV ×3 (17:10→20:16)
[2024-05-08] MEDS: DEXAMETHASONE 10 MG/ML VIAL IV (17:11)
[2024-05-08 18:00] LABS: Influenza A - CEPHEID Flu A NEGATIVE (NEGATIVE); Influenza B - CEPHEID Flu B NEGATIVE (NEGATIVE); Respiratory Syncytial Virus Negative (Negative)
[2024-05-08 18:01] LABS: COVID-19 CEPHEID 4-PLEX PCR Negative (Negative)
[2024-05-08] MEDS: PROMETHAZINE 25 MG TABLET 12.5 MG PO (18:27)
[2024-05-08 19:50] LABS: Bacteria Urine Few (2-10); Culture Indicated Urine Cult Not Indicated; RBC Urine 1-5/HPF (0-5/HPF); Squamous Epithelial Cell Urine 1-5 /HPF (0-5/HPF); Urine Volume 10mL (spun); WBC Urine 1-5/HPF (0-5/HPF)
[2024-05-08] MEDS: LORazepam 0.5 MG TABLET 1 MG PO (21:28)
--- NOTE | 2024-05-08 22:18 | DI.RAD.S_ITS ---
PROCEDURE: XR LUMBAR SPINE 2-3V INDICATIONS: requested [facility] to r/o hardware fx/break TECHNIQUE: 3 views of the lumbar spine were acquired. COMPARISON: None. FINDINGS: Bones: 5 [id number] vertebrae are present. There is normal bony alignment. No vertebral body compression fractures. No suspicious bony lesions. Status post posterior fixation of L4-L5 with intervertebral disc spacer at L4-L5 and L5-S1. Hardware appears intact. Soft tissues: Overlying bowel gas pattern is normal. No suspicious soft tissue calcifications. IMPRESSION: No acute osseous abnormality. Hardware appears intact. Approved by: Ro Evangelista M.D.,Ph.D. on 05/08/2024 at 23:43
[2024-05-08] MEDS: HYDROMORPHONE 2 MG TABLET 4 MG PO (22:29)
[2024-05-09] VITALS: PULSE 107; O2SAT 94
[2024-05-09 00:30] VITALS: PULSE 105; O2SAT 93
[2024-05-09] MEDS: HYDROMORPHONE 2 MG TABLET 4 MG PO (00:58)
[2024-05-09 01:00] VITALS: BP 119/59; PULSE 115; O2SAT 97
== END 2024-05-09 01:07 | disposition home or self-care (01) ==
PROVIDERS: Physician Assistant; Emergency Provider Emergency Medicine; PCP Internal Medicine
DX: M54.50 Low back pain, unspecified (principal); M79.605 Pain in left leg; M43.26 Fusion of spine, lumbar region; Z72.0 Tobacco use
CPT/HCPCS: 0241U; 36415; 71045; 72100; 72158; 80053; 81015; 81025; 83605; 83690; 85025; 85651; 86140; 96361; 96374; 96375; 96376; 99285; A9579; J1100; J1171; J1885

== ENCOUNTER → 2024-06-17 16:08 | Outpatient (CLI) | payer OTHER, SELFPAY ==
--- NOTE | 2024-06-17 16:10 | DI.RAD.S_ITS ---
PROCEDURE: XR CHEST 2V INDICATIONS: cough TECHNIQUE: 2 views of the chest were acquired. COMPARISON: [facility], CR, XR CHEST 1V, 05/08/2024, 16:10. FINDINGS: Surgical changes and devices: None. Lungs and pleura: Lungs are clear. No pleural effusions or pneumothorax. Mediastinum: Mediastinal contours are normal. Heart size is normal. Bones and chest wall: No suspicious bony abnormalities. Soft tissues appear unremarkable. IMPRESSION: No acute cardiopulmonary abnormality is seen. Dictated by: Paulie Gordon M.D. on 06/17/2024 at 21:45 Approved by: Paulie Gordon M.D. on 06/17/2024 at 21:46
[2024-06-17 17:17] LABS: Add Manual Diff / Slide Review NO; Basophils Absolute Auto 0 /uL (0-100); Basophils Percent Auto 0.4 % (0-2); Eosinophils Absolute Auto 100 /uL (0-450); Eosinophils Percent Auto 1.3 % (2-4); Hematocrit 37.1 % (36-46); Hemoglobin 12.2 g/dL (12.0-16.0); Lymphocytes Absolute Auto 3100 /uL (1100-4500); Mean Corpuscular Hemoglobin 25.5 PG (26-34); Mean Corpuscular Volume 77.1 fL (80-100); Monocytes Absolute Auto 400 /uL (0-900); Monocytes Percent Auto 4.4 % (3-14); Neutrophils Absolute Auto 5600 /uL (1500-7000); Neutrophils Percent Auto 60.9 % (50-75); Platelet Count 368 X10^3/uL (150-400); Red Blood Cell Count 4.81 X10^6/uL (4.0-5.2); Red Cell Distribution Width 19.5 % (11.6-14.8); White Blood Cell Count 9.3 X10^3/uL (4.5-11.0)
[2024-06-17 17:49] LABS: Alanine Aminotransferase 75 IU/L (<35); Albumin 4.3 g/dL (3.5-5.0); Albumin Globulin Ratio 1.7 (1.0-2.8); Alkaline Phosphatase 118 U/L (38-126); Aspartate Aminotransferase 53 IU/L (14-36); BUN Creatinine Ratio 26.3 (6-22); Bilirubin Total 0.2 mg/dL (0.2-1.3); Blood Urea Nitrogen 15 mg/dL (7-17); Calcium 9.2 mg/dL (8.4-10.2); Carbon Dioxide 28 mmol/L (22-32); Chloride 103 mmol/L (98-107); Estimated Glomerular Filt Rate > 60 mL/min (>60); Globulin 2.6 g/dL (1.7-4.1); Glucose 89 mg/dL (70-100); HEMOLYSIS < 15 (0-50); Potassium 4.1 mmol/L (3.4-5.1); Sodium 141 mmol/L (137-145); Total Protein 6.9 g/dL (6.3-8.2)
== END ==
PROVIDERS: PCP Internal Medicine; Referring Provider Physician Assistant; Visit Provider Physician Assistant
DX: R05.1 Acute cough (principal); R11.10 Vomiting, unspecified
CPT/HCPCS: 36415; 71046; 80053; 85025

== ENCOUNTER 2024-10-28 11:19 | Emergency (ER) | payer OTHER, SELFPAY ==
[2024-10-28] VITALS (14 sets, daily range): BP systolic 102–154; BP diastolic 55–84; PULSE 87–131; RESP 14–24; TEMP 36.7; O2SAT 95–100; BMI 36.6
--- NOTE | 2024-10-28 11:33 | ED_ITS ---
<Statement entered by Enrique Gant, DO - 10/28/24 18:41> Co-Sign Statement I was available for consultation during this patient's emergency department visit. This chart is signed by myself for administrative purposes only. I do not have direct contact with this patient during this visit. They were seen by the APC independently. HPI - Female Genitourinary General Chief complaint: Abdominal Pain Stated complaint: Bladder infection blood in urine , fever Time Seen by Provider: 10/28/24 11:27 History of Present Illness HPI Narrative: This is a 39-year-old woman with a history of chronic back pain on daily opioids presents to the ER with concern for blood in her urine with low abdominal pain since this morning as well as general achiness and feeling unwell for 2 weeks. Nausea and vomiting for 3 days fevers for 3 days T-max 101.8?, patient also states she has had a bad cough for about 8 days and her mother currently has bacterial pneumonia. She states today is the 1st day that Tylenol brought her fever down. She states she does have a history of kidney stones but describes her pain as generalized low abdominal pain and a worsening of her chronic back pain. She also has pain with breathing and coughing associated with her upper respiratory infection. Patient states due to her nausea the last few days she has been unable to take her regular medications including her pain medicine. She states she still has some of her pain meds available but is not taking them as it makes her feel nauseous. She notes she had a fall in the shower a week ago that did exacerbate her chronic left back and leg pain. She states since having back surgery she has had chronic pain radiating from her left back and buttock down into her left leg. She says she also has had problems in the past with ovarian cysts. And her last menstrual period was the week of September. Related Data Home Medications ?Medication ?Instructions ?Recorded ?Confirmed diazepam 2 mg tablet 2 mg PO BID PRN Anxiety 08/2206/17/24 vilazodone 40 mg tablet 50 mg PO DAILY 09/10/2305/26 hydromorphone 2 mg tablet 4 mg PO Q4H PRN pain 5 06/17/24 methylphenidate HCl 54 mg mg PO QAM 06/17/24 06/17/24 tablet,extended release 24 hr norethindrone (contraceptive) 0.35 mg PO DAILY 5 06/17/24 mg tablet vilazodone 10 mg tablet mg PO DAILY 06/17/24 5 Previous Rx's ?Medication ?Instructions ?Recorded hydromorphone 2 mg tablet 2 mg PO Q4-6H PRN pain #10 t abs 05/09/24 (Dilaudid) benzonatate 100 mg capsule 100 mg PO TID PRN cough 10 days 10/28/24 #30 caps ciprofloxacin HCl 500 mg tablet 500 mg PO Q12H pyelone phritis 7 10/28/24 days #14 tabs promethazine 12.5 mg tablet 12.5 mg PO TID PRN nausea and 10/28/24 vomiting 7 days #30 tabs Allergies Allergy/AdvReac Type Severity Reaction Status Date / Time meperidine (From Demerol) Allergy Hypertensio Verified 10/28/24 11:25 n piperacillin (From Zosyn) Allergy Hypotension Verified 10/28/24 11:25 tazobactam (From Zosyn) Allergy Hypotension Verified 10/28/24 11:25 codeine AdvReac Hives Verified 10/28/24 11:25 metoclopramide (From Reglan) AdvReac Anxiety Verified 10/28/24 11:25 ondansetron (From Zofran) AdvReac Hives Verified 10/28/24 11:25 Sulfa (Sulfonamide AdvReac Hives Verified 10/28/24 11:25 Antibiotics) Review of Systems Review of Systems Narrative: See HPI Patient History tobacco type: cigarettes Exam Narrative Exam Narrative: GENERAL: 39 year old patient appears stated age. Well-developed patient, in mild distress. HEAD: Atraumatic. Normocephalic. EYES: Pupils equal round and reactive. Extraocular motions intact. No scleral icterus. No injection or drainage. ENT: Nose without bleeding, purulent drainage. Airway patent. NECK: Trachea midline. Non tender CARDIOVASCULAR: Regular rate and rhythm without murmurs, gallops, or rubs. RESPIRATORY: Clear to auscultation. Breath sounds equal bilaterally. No wheezes, rales, or rhonchi. GASTROINTESTINAL: There is a surgical scar well healed over the left low abdomen running laterally. Abdomen soft, there is generalized tenderness in the lower abdomen more pronounced tenderness in the left low abdomen. Nondistended, generalized bilateral flank tenderness slightly more tender over CVA bilaterally. Negative McBurney's point tenderness negative Viveros sign EXTREMITIES: No edema or joint tenderness. Patient walks with antalgic gait favoring her left side (baseline) BACK: Generalized low back tenderness over the lumbar spine. Surgical scar. Without deformity or crepitance. There is bilateral flank tenderness. NEURO: AOx3. SKIN: No rash or erythema of visible areas Initial Vital Signs Initial Vital Signs: Vital Signs Temperature 98.1 F 10/28/24 11:25 Pulse Rate 131 H 10/28/24 11:25 Blood Pressure 154/78 H 10/28/24 11:25 Pulse Oximetry 100 10/28/24 11:25 Oxygen Delivery Method Room Air 10/28/24 11:25 Course Course Course Narrative: Patient was tachycardic in triage. Do note that she takes methylphenidate. However suspect she was dehydrated, and this is possibly also affect of her current illness. She has been febrile recently. Also some concern for pneumonia bacterial versus UTI/pyelonephritis. Patient endorses that she did have hypotension when she had some stronger more broad-spectrum antibiotics but no other symptoms no airway involvement or hives. She says she was at that time. Orders Ordered: ED Orders 10/28/24 11:32 Urine Culture Stat Urine Microscopic Stat 10/28/24 11:34 XR chest 2V Stat 10/28/24 12:20 Complete Blood Count AUTO DIFF Stat Comprehensive Metabolic Panel Stat Lactate (Lactic Acid) Stat Lipase Stat 10/28/24 12:45 CT abdomen pelvis w con Stat Discontinued Medications Hydromorphone HCl (Hydromorphone Hcl 0.5 Mg/0.5 Ml Syringe) 0.5 mg IV NOW ONE Stop: 10/28/24 11:53 Last Admin: 10/28/24 12:33 Dose: 0.5 mg Documented By: MICHELA Hydromorphone HCl (Hydromorphone Hcl 0.5 Mg/0.5 Ml Syringe) 0.5 mg IV NOW ONE Stop: 10/28/24 13:13 Last Admin: 10/28/24 13:39 Dose: 0.5 mg Documented By: MICHELA Hydromorphone HCl (Hydromorphone Hcl 0.5 Mg/0.5 Ml Syringe) 0.5 mg IV NOW ONE Stop: 10/28/24 14:30 Last Admin: 10/28/24 14:49 Dose: 0.5 mg Documented By: MICHELA Sodium Chloride (Normal Saline 0.9%) 1,000 mls @ 1,000 mls/hr IV BOLUS ONE Stop: 10/28/24 12:33 Last Infusion: 10/28/24 14:34 Dose: Infused Documented By: Admin: 10/28/24 12:39 Dose: 1,000 mls/hr Documented By: MICHELA Ceftriaxone Sodium 1,000 mg/ (Sodium Chloride) 100 mls @ 200 mls/hr IV NOW ONE Stop: 10/28/24 13:57 Last Admin: 10/28/24 14:34 Dose: 200 mls/hr Documented By: MICHELA Promethazine HCl (Promethazine 25 Mg Tablet) 12.5 mg PO NOW ONE Stop: 10/28/24 12:37 Last Admin: 10/28/24 12:54 Dose: 12.5 mg Documented By: MICHELA Vital Signs Vital signs: Vital Signs - 8 hr 10/28/24 11:25 10/28/24 11:55 10/28/24 12:00 Temperature 98.1 F Pulse Rate 131 H 109 H 108 H Respiratory Rate 19 21 Blood Pressure 154/78 H Pulse Oximetry 100 Oxygen Delivery Method Room Air 10/28/24 12:30 10/28/24 12:38 10/28/24 12:38 Temperature Pulse Rate 100 H 111 H Respiratory Rate 24 Blood Pressure 115/72 Pulse Oximetry 96 Oxygen Delivery Method 10/28/24 13:00 10/28/24 13:01 10/28/24 13:01 Temperature Pulse Rate 95 H 98 H Respiratory Rate 22 Blood Pressure 134/84 Pulse Oximetry 98 98 Oxygen Delivery Method 10/28/24 13:23 10/28/24 13:23 10/28/24 13:30 Temperature Pulse Rate 101 H Respiratory Rate Blood Pressure 113/56 L 102/56 L Pulse Oximetry 97 Oxygen Delivery Method 10/28/24 13:30 10/28/24 14:00 10/28/24 14:00 Temperature Pulse Rate 98 H 91 H Respiratory Rate 18 19 Blood Pressure 120/71 Pulse Oximetry 99 97 Oxygen Delivery Method Room Air 10/28/24 14:30 10/28/24 14:32 10/28/24 14:32 Temperature Pulse Rate 89 87 Respiratory Rate 17 Blood Pressure 102/58 L Pulse Oximetry 95 97 Oxygen Delivery Method 10/28/24 14:40 10/28/24 14:40 10/28/24 14:45 Temperature Pulse Rate 94 H Respiratory Rate 14 Blood Pressure 103/77 115/55 L Pulse Oximetry 97 Oxygen Delivery Method 10/28/24 14:45 Temperature Pulse Rate 94 H Respiratory Rate 14 Blood Pressure Pulse Oximetry 96 Oxygen Delivery Method Room Air MDM - Female Genitourinary Differential Diagnosis Differential diagnosis: Likely urinary tract infection and other (Acute on chronic low back pain/left hip pain, pyelonephritis) Medical Records Attestation: I reviewed the patient's medical records. Lab Data Attestation: I reviewed the patient's lab results. 10/28/24 12:20 10/28/24 12:20 Labs: Lab Results 10/28/24 10/28/24 Range/Units 11:32 12:20 WBC 15.1 H (4.5-11.0) X10^3/uL RBC 4.60 (4.0-5.2) X10^6/uL Hgb 12.8 (12.0-16.0) g/dL Hct 37.9 (36-46) % MCV 82.4 (80-100) fL MCH 27.7 (26-34) PG MCHC 33.7 (30-36) % RDW 14.4 (11.6-14.8) % Plt Count 302 (150-400) X10^3/uL Neut % (Auto) 81.2 H (50-75) % Lymph % (Auto) 14.3 L (25-40) % [place] % (Auto) 3.7 (3-14) % Eos % (Auto) 0.4 L (2-4) % Baso % (Auto) 0.4 (0-2) % Neut # (Auto) 08279 H (4539-0583) /uL Lymph # (Auto) 2200 (9188-6967) /uL [place] # (Auto) 600 (0-900) /uL Eos # (Auto) 100 (0-450) /uL Baso # (Auto) 100 (0-100) /uL Sodium 137 (137-145) mmol/L Potassium 3.7 (3.4-5.1) mmol/L Chloride 102 (98-107) mmol/L Carbon Dioxide 28 (22-32) mmol/L BUN 13 (7-17) mg/dL Creatinine 0.61 (0.52-1.04) mg/dL Estimated GFR > 60 (>60) mL/min BUN/Creatinine Ratio 21.3 (6-22) Glucose 103 H (70-99) mg/dL Lactate 1.3 (0.7-2.1) mmol/L Calcium 8.8 (8.4-10.2) mg/dL Total Bilirubin 0.4 (0.2-1.3) mg/dL AST 25 (14-36) IU/L ALT 49 H (<35) IU/L Alkaline Phosphatase 97 (38-126) U/L Total Protein 7.6 (6.3-8.2) g/dL Albumin 4.4 (3.5-5.0) g/dL Globulin 3.2 (1.7-4.1) g/dL Albumin/Globulin Ratio 1.4 (1.0-2.8) Lipase 90 (23-300) U/L Urine RBC 30-100/hpf H (0-5/HPF) Urine WBC 10-30/hpf H (0-5/HPF) Ur Squamous Epith Cells None seen (0-5/HPF) Urine Bacteria None seen (None) Ur Culture Indicated? Specimen cultured Vol Urine Centrifuged 10ml (spun) Point of Care Testing Test Results Negative Urine Dip Bedside Urine Glucose Negative Bedside Urine Bilirubin - Negative Bedside Urine Ketone - Negative Urine Specific [place] 1.020 Bedside Urine Occult Blood +++ Bedside Urine pH 6.5 Bedside Urine Protein ++ 100 Bedside Urine Urobilinogen - Negative Bedside Urine Nitrite - Negative Bedside Urine Leukocytes +++ 500 Esterase Imaging Data Chest x-ray: My Impression: Agree with Radiology interpretation. Radiologist's Impression: [address] [address] XRay Report Signed Patient: Belle Prince MR#: [id number] : 1985 Acct:[id number] Age/Sex: 39 / F Date of Service: 10/28/24 Loc: ED Accession Number: [id number] Procedure: XR chest 2V Ordering Provider: Mikki Taylor PA-C PROCEDURE: XR CHEST 2V INDICATIONS: cough 8 D family w/ bacterial pna TECHNIQUE: 2 views of the chest were acquired. COMPARISON: [facility], CR, XR CHEST 2V, 06/17/2024, 16:24. FINDINGS: Surgical changes and devices: None. Lungs and pleura: Lungs are clear. No pleural effusions or pneumothorax. Mediastinum: Mediastinal contours are normal. Heart size is normal. Bones and chest wall: No suspicious bony abnormalities. Soft tissues appear unremarkable. IMPRESSION: No acute cardiopulmonary abnormality is seen. Approved by: Rony Maya M.D. on 10/28/2024 at 12:50 CT scan - abdomen/pelvis: My Impression: Agree with Radiology interpretation Radiologist's Impression: [address] [address] [address] Scan Report Signed Patient: Belle Prince MR#: [id number] : 1985 Acct:[id number] Age/Sex: 39 / F Date of Service: 10/28/24 Loc: ED Accession Number: [id number] Procedure: CT abdomen pelvis w con Ordering Provider: Mikki Taylor PA-C PROCEDURE: CT ABDOMEN PELVIS W CON INDICATIONS: abd/flank pain bilat, worse LLQ +UTI TECHNIQUE: After the administration of intravenous contrast, axial sections acquired from the lung bases to the pubic symphysis. Coronal and sagittal reformats were performed. For radiation dose reduction, the following was used: automated exposure control, adjustment of mA and/or kV according to patient size. COMPARISON: [facility], , XR CHEST 2V, 10/28/2024, 11:35. FINDINGS: Image quality: Diagnostic. Lower Chest: No significant findings. ABDOMEN: Liver: No solid mass. Gallbladder: Absent. Biliary ducts: No biliary dilation. Pancreas: No ductal dilation. Spleen: Size is within normal limits. Adrenal Glands: No adrenal nodules. Kidneys and Ureters: No hydronephrosis. No solid mass. No complex renal cystic lesion which requires follow up. Stomach and Bowel: Normal colonic caliber, without significant wall thickening. Peritoneum: No abnormal intraperitoneal fluid. No free air. Ventral Wall: No significant ventral hernia. Abdominal Nodes: No retroperitoneal or mesenteric adenopathy by size criteria. Vessels: Aorta and inferior vena cava are normal in size. PELVIS: Pelvic Organs: Unremarkable. Bladder: Bladder wall stratification. Pelvic Nodes: No enlarged lymph nodes. Miscellaneous: No inguinal hernias are seen. Bones: No aggressive osseous abnormality. Surgical fusion L4-5 and L5-S1. IMPRESSION: Bladder wall stratification, suggestive of cystitis. Correlate with urinalysis. Dictated by: Jorge Mendieta M.D. on 10/28/2024 at 13:40 Approved by: Jorge Mendieta M.D. on 10/28/2024 at 13:42 MDM Narrative Medical decision making narrative: This is a 39-year-old woman with a history of previous back surgery/chronic low left back and leg pain, reported Von Willebrand's, and chronic opioid use presenting with concern for fevers for 3 days, low abdominal pain with blood in her urine since this morning in a cough for over a week. Chest x-ray was unremarkable today. Urine dip is consistent with a UTI her exam is very suspicious for pyelonephritis however she does have chronic flank and back pain and has had 2 previous back surgeries. Urine negative. CT abdomen pelvis with contrast obtained for further evaluation which shows only inflammation of the bladder consistent with UTI. Her labs do show a leukocytosis to 15 consistent with infection. She received a L of fluids and her initial lactate was unremarkable. Her other labs also looked okay. Blood cultures were not obtained given her rapid improvement with fluids and lactate not elevated. An element the patient is tachycardic could also be due to her methylphenidate use/prescription. She received ceftriaxone and Dilaudid as well as promethazine for nausea while in the emergency department. Her tachycardia improved and she was overall generally feeling better with these interventions; patient appropriate for discharge with continued antibiotics orally, ciprofloxacin for pyelonephritis. Patient also prescribed promethazine for nausea. And benzonatate for cough. Patient discharged with her family member driving her home. Advised to monitor carefully for new or worsening symptoms take Tylenol as needed for pain in addition to her regular pain medicines/regimen. Return precautions provided, follow-up plan discussed, all questions answered. Discharge Plan Departure Patient Disposition: Home Clinical Impression: Infection of kidney, Acute on chronic low back pain UTI (urinary tract infection) Qualifiers: Urinary tract infection type: acute cystitis Hematuria presence: with hematuria Qualified Code(s): N30.01 - Acute cystitis with hematuria Cough Qualifiers: Cough type: acute Qualified Code(s): R05.1 - Acute cough Activity Restrictions/Additional Instructions: *You have been diagnosed with [kidney infection, UTI cough, likely viral illness] *What to do: *Please continue to take your regular medications as directed. [Promethazine, ciprofloxacin, benzonatate] New medication prescriptions sent to your pharmacy: [ ] [ ] New medication written as a paper prescription [ ] No new medications given *Please follow up with your primary care provider in 2-3 days, call for an appointment. Let them know you were seen in the Emergency Department and that we ask that you be seen in follow up. We will electronically transmit a record of today's note if your PCP is in our system. You came in today feeling unwell for multiple days with a cough for a week and blood in your urine since this morning with abdominal pain since this morning. We obtained labs and imaging today your chest x-ray looked okay at this time I do not think we need to do antibiotics for that, however I did prescribe a cough medicine for you. Your labs exam and history are consistent with a urinary tract infection with kidney involvement. You improved with fluids today in the emergency department we also gave you a long-acting antibiotic 3 or IV. I would like you to take the oral antibiotics prescribed as well to make sure that your infection is fully treated. With the antibiotics on board you should not be continuing to have fevers and your symptoms should be improving over the next couple of days. It was very reasonable to take Tylenol and you can certainly take your regular pain regimen as well with the promethazine I have prescribed for nausea this should help you to keep your meds down. Please make sure that you are staying hydrated and rest. I hope that you feel better soon. *If you do not have a primary care provider please contact the [facility] Resource line at [phone]. They will ask some questions about your medical history and help get you set up with a doctor in the community. *Return to Emergency Department if you should have any new, worsening or concerning symptoms, such as [fever greater than 101 F, shaking chills, worsening pain, persistent vomiting or other bothersome symptoms] Prescriptions: New promethazine 12.5 mg tablet 12.5 mg PO TID PRN (Reason: nausea and vomiting) 7 Days Qty: 30 0RF ciprofloxacin HCl 500 mg tablet 500 mg PO Q12H 7 Days Qty: 14 0RF benzonatate 100 mg capsule 100 mg PO TID PRN (Reason: cough) 10 Days Qty: 30 0RF No Action norethindrone (contraceptive) 0.35 mg tablet PO DAILY methylphenidate HCl 54 mg tablet extended release 24hr PO QAM vilazodone 10 mg tablet PO DAILY hydromorphone 2 mg tablet 4 mg PO Q4H PRN (Reason: pain) hydromorphone [Dilaudid] 2 mg tablet 2 mg PO Q4-6H PRN (Reason: pain) Qty: 10 0RF diazepam 2 mg tablet 2 mg PO BID PRN (Reason: Anxiety) vilazodone 40 mg tablet 50 mg PO DAILY Referrals: Socrates Franklin MD [Primary Care Provider, Internal Medicine] Stand Alone Forms: Patient Portal/API
[2024-10-28 11:59] LABS: Culture Indicated Urine Specimen Cultured
--- NOTE | 2024-10-28 12:10 | PC.NURSE ---
2 unsuccessful iv attempts, another RN is attempting at this time.
[2024-10-28 12:31] LABS: Add Manual Diff / Slide Review NO; Hematocrit 37.9 % (36-46); Hemoglobin 12.8 g/dL (12.0-16.0); Lymphocytes Absolute Auto 2200 /uL (1100-4500); Mean Corpuscular HGB Conc 33.7 % (30-36); Mean Corpuscular Hemoglobin 27.7 PG (26-34); Mean Corpuscular Volume 82.4 fL (80-100); Platelet Count 302 X10^3/uL (150-400)
[2024-10-28] MEDS: SODIUM CHLORIDE 0.9% 1,000 ML 1000 ML IV (12:39)
[2024-10-28 12:44] LABS: Alanine Aminotransferase 49 IU/L (<35); Albumin 4.4 g/dL (3.5-5.0); Albumin Globulin Ratio 1.4 (1.0-2.8); Alkaline Phosphatase 97 U/L (38-126); Blood Urea Nitrogen 13 mg/dL (7-17); Calcium 8.8 mg/dL (8.4-10.2); Carbon Dioxide 28 mmol/L (22-32); Chloride 102 mmol/L (98-107); Estimated Glomerular Filt Rate > 60 mL/min (>60); Globulin 3.2 g/dL (1.7-4.1); Glucose 103 mg/dL (70-99); HEMOLYSIS < 15 (0-50); Lipase 90 U/L (23-300); Potassium 3.7 mmol/L (3.4-5.1); Sodium 137 mmol/L (137-145); Total Protein 7.6 g/dL (6.3-8.2)
[2024-10-28 12:45] LABS: Lactate (Lactic Acid) 1.3 mmol/L (0.7-2.1)
--- NOTE | 2024-10-28 12:45 | DI.CT.S_ITS ---
PROCEDURE: CT ABDOMEN PELVIS W CON INDICATIONS: abd/flank pain bilat, worse LLQ +UTI TECHNIQUE: After the administration of intravenous contrast, axial sections acquired from the lung bases to the pubic symphysis. Coronal and sagittal reformats were performed. For radiation dose reduction, the following was used: automated exposure control, adjustment of mA and/or kV according to patient size. COMPARISON: [facility], CR, XR CHEST 2V, 10/28/2024, 11:35. FINDINGS: Image quality: Diagnostic. Lower Chest: No significant findings. ABDOMEN: Liver: No solid mass. Gallbladder: Absent. Biliary ducts: No biliary dilation. Pancreas: No ductal dilation. Spleen: Size is within normal limits. Adrenal Glands: No adrenal nodules. Kidneys and Ureters: No hydronephrosis. No solid mass. No complex renal cystic lesion which requires follow up. Stomach and Bowel: Normal colonic caliber, without significant wall thickening. Peritoneum: No abnormal intraperitoneal fluid. No free air. Ventral Wall: No significant ventral hernia. Abdominal Nodes: No retroperitoneal or mesenteric adenopathy by size criteria. Vessels: Aorta and inferior vena cava are normal in size. PELVIS: Pelvic Organs: Unremarkable. Bladder: Bladder wall stratification. Pelvic Nodes: No enlarged lymph nodes. Miscellaneous: No inguinal hernias are seen. Bones: No aggressive osseous abnormality. Surgical fusion L4-5 and L5-S1. IMPRESSION: Bladder wall stratification, suggestive of cystitis. Correlate with urinalysis. Dictated by: Jorge Mendieta M.D. on 10/28/2024 at 13:40 Approved by: Jorge Mendieta M.D. on 10/28/2024 at 13:42
[2024-10-28] MEDS: PROMETHAZINE 25 MG TABLET 12.5 MG PO (12:54)
--- NOTE | 2024-10-28 15:34 | PC.NURSE ---
Patient reports that they've had ceftriaxone in the past and it made them hypotensive, Povider orders close monitoring of blood pressure. Patients blood pressure during abx administration drops to 90's systolic, patient not symptomatic, provider iMkki Longely aware
== END 2024-10-28 16:20 | disposition home or self-care (01) ==
PROVIDERS: Emergency Provider Student in an Organized Health Care Education/Training Program; PCP Internal Medicine
DX: N30.01 Acute cystitis with hematuria (principal); R05.1 Acute cough; M54.50 Low back pain, unspecified; R10.30 Lower abdominal pain, unspecified; N15.9 Renal tubulo-interstitial disease, unspecified; R11.2 Nausea with vomiting, unspecified; R00.0 Tachycardia, unspecified
CPT/HCPCS: 36415; 71046; 74177; 80053; 81003; 81015; 81025; 83605; 83690; 85025; 87086; 96361; 96365; 96366; 96375; 96376; 99284; J0696; J1171